=== PATIENT | male | born 1955 | race Hispanic/Latino ===

== ENCOUNTER 2017-06-02 19:38 | Inpatient (IN) | payer BC ==
[2017-06-02 19:57] VITALS: BMI 30.1
--- NOTE | 2017-06-02 20:21 | ED PDOC ---
Arrival/HPI - General Chief Complaint: Lower Extremity Problem/Injury Time Seen by Provider: 06/02/17 19:53 Historian: Patient - History of Present Illness Narrative History of Present Illness (Text): 06/02/17 20:16 A 61 year old male whose past medical history includes possible pre- diabetes, presents to the emergency department after being sent in by his metal sponge making machine operator to be evaluated for cellulitis, and abscess to the left lower leg/foot. The patient states that his foot has been in this condition for some time, and was recently seen for a leg infection by his PMD. He was given amoxicillin, but was also seen by his metal sponge making machine operator today and was told to come to the emergency department for antibiotics, IV Fluids, infectious disease and podiatric evaluation. He denies fevers, chills, nausea, vomiting, diarrhea, headache, dizziness, chest pain, shortness of breath, neck pain, back pain, or any other complaint. Symptom Onset: Gradual Symptom Course: Worsening Activities at Onset: Rest, Light Context: Home Past Medical History - Provider Review Nursing Documentation Reviewed: Yes - Psychiatric Hx Substance Use: No - Anesthesia Hx Anesthesia: No Family/Social History - Physician Review Nursing Documentation Reviewed: Yes Family/Social History: No Known Family HX Smoking Status: Never Smoked Hx Alcohol Use: No Hx Substance Use: No Allergies/Home Meds Allergies/Adverse Reactions: Allergies No Known Allergies Allergy (Verified 06/02/17 19:58) Home Medications: Home Meds Medication Instructions Recorded Confirmed No Known Home Med 06/02/17 06/02/17 Review of Systems - Physician Review All systems were reviewed & negative as marked: Yes - Review of Systems Constitutional: absent: Fevers, Night Sweats Respiratory: absent: SOB, Cough Cardiovascular: absent: Chest Pain Gastrointestinal: absent: Abdominal Pain, Diarrhea, Nausea, Vomiting Musculoskeletal: Other (evaluation for gangrene, abscess, and cellulitis on left lower leg.). absent: Back Pain, Neck Pain Neurological: absent: Headache, Dizziness Physical Exam Vital Signs Reviewed: Yes Vital Signs Temp Pulse Resp BP Pulse Ox 06/02/17 20:03 98.5 F 73 16 145/67 95 Temperature: Afebrile Blood Pressure: Normal Pulse: Regular Respiratory Rate: Normal Appearance: Positive for: Well-Appearing, Non-Toxic, Comfortable Pain Distress: None Mental Status: Positive for: Alert and Oriented X 3 - Systems Exam Head: Present: Atraumatic, Normocephalic Pupils: Present: PERRL Extroacular Muscles: Present: EOMI Conjunctiva: Present: Normal Mouth: Present: Moist Mucous Membranes Neck: Present: Normal Range of Motion Respiratory/Chest: Present: Clear to Auscultation, Good Air Exchange. No: Respiratory Distress, Accessory Muscle Use Cardiovascular: Present: Regular Rate and Rhythm, Normal S1, S2. No: Murmurs Abdomen: Present: Normal Bowel Sounds. No: Tenderness, Distention, Peritoneal Signs Back: Present: Normal Inspection Upper Extremity: Present: Normal Inspection. No: Cyanosis, Edema Lower Extremity: Present: Erythema (confluent errythema/swelling to the left lower leg/foot area (chronic)), Deformity ( macerated infected distal fifth, fourth, and third toes,discolored/gangrenous distally). No: NORMAL PULSES ( Distal pulses barely palapable distally.), Tenderness (No tenderness to the left lower leg and foot area) Neurological: Present: GCS=15, CN II-XII Intact, Speech Normal Psychiatric: Present: Alert, Oriented x 3, Normal Insight, Normal Concentration Medical Decision Making ED Course and Treatment: 06/02/17 20:27 Impression: A 61 year old male presents after being advised by his metal sponge making machine operator for evaluation of gangrene, cellulitis, and abscess. Plan: -- EKG -- Chest X-ray -- Lower Extremity Vein US -- Blood/Wound Culture -- IV Fluids -- Reassess and disposition Progress Notes: Reviewed EKG, NSR at [address]-segment elevations or depressions, no T-wave inversions, normal intervals. 06/02/17 21:23 Reviewed radiology, Chest X-ray shows no acute processes. US Duplex Lower Extremities negative for DVT. 06/02/17 21:[address] Ramirez, supply chain vice president diversional therapist, who is aware and agrees to evaluate with pt. 06/02/17 22:[address] Devin Kenney, who is aware and agrees with plan. Accepts pt in to his service. Pt will be admitted to [facility] for abscess, cellulitis, and gangrenous toes. Requests Dr. Farrell, Dr. Lagunas, Dr. Escalera, and Dr. Sidhu on consult. - Lab Interpretations Lab Results: 06/02/17 21:19 06/02/17 21:19 Lab Results 06/02/17 21:19: Sodium 140, Potassium 4.3, Chloride 101, Carbon Dioxide 27, Anion Gap 16, BUN 20, Creatinine 0.7, Est GFR ( Amer) > 60, Est GFR (Non- Af Amer) > 60, Random Glucose 263 H, Calcium 8.9, Total Bilirubin 0.7, AST 41, ALT 50, Alkaline Phosphatase 119, Total Protein 7.7, Albumin 3.4, Globulin 4.3, Albumin/Globulin Ratio 0.8 L 06/02/17 21:19: WBC 9.1, RBC 4.18, Hgb 11.9 L, Hct 35.5 L, MCV 84.9, MCH 28.5, MCHC 33.5, RDW 12.6, Plt Count 377, MPV 9.2 06/02/17 21:19: PT 12.4 H, INR 1.15 H, APTT 27.3 I have reviewed the lab results: Yes - RAD Interpretation Radiology Orders: 06/02/17 20:16 CHEST PORTABLE [RAD] Stat 06/02/17 20:17 DUPLEX LOWER EXTRM VEIN BILAT [US] Stat 06/02/17 22:07 FOOT LEFT 3 VIEWS ROUTINE [RAD] Stat - EKG Interpretation Interpreted by ED Physician: Yes - Medication Orders Current Medication Orders: Sodium Chloride (Sodium Chloride 0.9%) 1,000 mls @ 100 mls/hr IV .Q10H AMIRA Last Admin: 06/02/17 20:30 Dose: 100 mls/hr eMAR Start Stop Document 06/02/17 20:30 SS (Rec: 06/02/17 22:55 SS [id number]) Intravenous Solution Start Date 06/02/17 Start Time 20:30 Vancomycin HCl (Vancomycin 1gm) 1 gm in 250 mls @ 167 mls/hr IVPB Q12H AMIRA PRN Reason: Protocol Last Admin: 06/03/17 00:27 Dose: Piperacillin Sod/Tazobactam Sod (Zosyn 3.375 In Ns 100ml) 100 mls @ 200 mls/hr IVPB Q6 AMIRA PRN Reason: Protocol Stop: 06/03/17 06:29 Last Admin: 06/03/17 01:00 Dose: Discontinued Medications Albuterol/Ipratropium (Duoneb 3 Mg/0.5 Mg (3 Ml) Ud) Confirm Administered Dose 3 ml .ROUTE .STK-MED ONE Stop: 06/03/17 00:22 Last Admin: 06/03/17 00:27 Dose: Vancomycin HCl (Vancomycin 1gm) 1 gm in 250 mls @ 167 mls/hr IVPB STAT STA PRN Reason: Protocol Stop: 06/02/17 23:43 Last Admin: 06/03/17 00:26 Dose: 167 mls/hr eMAR Start Stop Document 06/03/17 00:26 SS (Rec: 06/03/17 00:26 SS [id number]) Intravenous Solution Start Date 06/03/17 Start Time 00:26 Piperacillin Sod/Tazobactam Sod (Zosyn 3.375 In Ns 100ml) 100 mls @ 200 mls/hr IV STAT STA PRN Reason: Protocol Stop: 06/02/17 22:35 Last Admin: 06/02/17 22:54 Dose: 200 mls/hr eMAR Start Stop Document 06/02/17 22:54 SS (Rec: 06/02/17 22:54 SS [id number]) Intravenous Solution Start Date 06/02/17 Start Time 22:54 End Date 06/02/17 End time 23:24 Total Infusion Time 30 - Scribe Statement The provider has reviewed the documentation as recorded by the Enrrique Rey Provider Scribe Attestation: All medical record entries made by the Scribe were at my direction and personally dictated by me. I have reviewed the chart and agree that the record accurately reflects my personal performance of the history, physical exam, medical decision making, and the department course for this patient. I have also personally directed, reviewed, and agree with the discharge instructions and disposition. Disposition/Present on Arrival - Present on Arrival Any Indicators Present on Arrival: No History of DVT/PE: No History of Uncontrolled Diabetes: No Urinary Catheter: No History of Decub. Ulcer: No History Surgical Site Infection Following: None - Disposition Have Diagnosis and Disposition been Completed?: Yes Diagnosis: Cellulitis Disposition: HOSPITALIZED Disposition Time: 22:35 Condition: STABLE
[2017-06-02] MEDS: Sodium Chloride 0.9% 1,000 ML IV SCH (20:30)
[2017-06-02 21:34] LABS: HEMATOCRIT 35.5 % (42.0-52.0); MEAN CELL VOLUME 84.9 fl (80.0-105.0); MEAN CORPUSCULAR HEMOGLOBIN 28.5 pg (25.0-35.0); MEAN CORPUSCULAR HGB CONC 33.5 g/dl (31.0-37.0); MEAN PLATELET VOLUME 9.2 fl (7.0-11.0); RED CELL DISTRIBUTION WIDTH 12.6 % (11.5-14.5); WHITE BLOOD COUNT 9.1 10^3/ul (4.5-11.0)
[2017-06-02 21:40] LABS: ALB/GLOB RATIO 0.8 (1.1-1.8); ALKALINE PHOSPHATASE 119 U/L (38-126); ALT/SGPT 50 U/L (7-56); AST/SGOT 41 U/L (17-59); BILIRUBIN,TOTAL 0.7 mg/dL (0.2-1.3); BLOOD UREA NITROGEN 20 mg/dL (7-21); CALCIUM 8.9 mg/dL (8.4-10.5); CARBON DIOXIDE 27 mmol/L (21-33); CHLORIDE 101 mmol/L (98-107); GFR AFRICAN-AMERICAN > 60; GLUCOSE,RANDOM 263 mg/dL (70-110); POTASSIUM 4.3 mmol/L (3.6-5.0); SODIUM 140 mmol/L (132-148); TOTAL PROTEIN 7.7 g/dL (5.8-8.3)
[2017-06-02 21:42] LABS: INR 1.15 (0.93-1.08); PARTIAL THROMBOPLASTIN TIME 27.3 Seconds (23.7-30.8)
[2017-06-02] MEDS ORDERED: Piperacillin/Tazobact 3.375 gm 100 ML IV STA (22:06)
[2017-06-02] MEDS ORDERED: Vancomycin 1gm in NS 250ml 1 GM/250 ML BAG IVPB STA (22:14)
--- NOTE | 2017-06-02 23:12 | CP.PCM.CON ---
History of Present Illness - History of Present Illness History of Present Illness: Surgery: Dr. Farrell CC: LLE cellulitis and gangrenous toes HPI: 61M recently dx as pre-diabetic and started on metformin presents for evaluation of LLE cellulitis. Pt states that it began about 1 1/2 months ago w. some slight reddening of the foot and lower leg. He states that this progressed and the leg became darker in color, most notably at the L 4th and 5th digits. Pt states that about 1 1/2 weeks ago, he began to notice drainage from the foot which had a foul odor. Pt denies any pain to the affected extremity. He denies any fever. He does reports chills. Pt states that he has been taking amoxicillin and has not noted any improvement. He states that he saw his wine steward/stewardess today and was instructed to come to ED for further work up. He denies FAITH/blurred vision, no CP/palpitations, no SOB/cough, no N/V/D, pt does have decreased appetite, reports general feeling of malaise and fatigue. PMH: Pre-DM PSH: none Meds: metformin NKDA Social: No ETOH/Tobacco/drugs Fhx: Non-contributory Review of Systems - Review of Systems All systems: reviewed and no additional remarkable complaints except (HPI) Past Patient History - Past Social History Smoking Status: Never Smoked - PSYCHIATRIC Hx Substance Use: No - SURGICAL HISTORY Hx Surgeries: No - ANESTHESIA Hx Anesthesia: No Meds Allergies/Adverse Reactions: Allergies Allergy/AdvReac Type Severity Reaction Status Date / Time No Known Allergies Allergy Verified 06/02/17 19:58 - Medications Medications: Current Medications Sodium Chloride (Sodium Chloride 0.9%) 1,000 mls @ 100 mls/hr IV .Q10H AMIRA Last Admin: 06/02/17 20:30 Dose: 100 mls/hr Vancomycin HCl (Vancomycin 1gm) 1 gm in 250 mls @ 167 mls/hr IVPB STAT STA PRN Reason: Protocol Stop: 06/02/17 23:43 Vancomycin HCl (Vancomycin 1gm) 1 gm in 250 mls @ 167 mls/hr IVPB Q12H AMIRA PRN Reason: Protocol Piperacillin Sod/Tazobactam Sod (Zosyn 3.375 In Ns 100ml) 100 mls @ 200 mls/hr IVPB Q6 AMIRA PRN Reason: Protocol Stop: 06/03/17 06:29 Physical Exam - Constitutional Appears: Non-toxic, No Acute Distress - Head Exam Head Exam: ATRAUMATIC, NORMOCEPHALIC - Eye Exam Eye Exam: EOMI, PERRL Pupil Exam: NORMAL ACCOMODATION, PERRL - ENT Exam ENT Exam: Mucous Membranes Moist, Normal External Ear Exam - Neck Exam Neck exam: Positive for: Full Rom - Respiratory Exam Respiratory Exam: NORMAL BREATHING PATTERN. absent: Accessory Muscle Use, Respiratory Distress - Cardiovascular Exam Cardiovascular Exam: REGULAR RHYTHM - GI/Abdominal Exam GI & Abdominal Exam: Soft. absent: Tenderness - Extremities Exam Additional comments: LLE: + edema, + erythema from foot extending up calf, warm to touch, non-tender , sensation and motor fxn intact, 4th and 5 digit appear necrotic, purulent drainage noted, foul odor RLE: + edema, non-tender, no erythema, R big toe appear necrotic at tip, no drainage, web space between toes macerated, foul odor - Neurological Exam Neurological exam: Alert, Oriented x3 Results - Vital Signs Recent Vital Signs: Last Vital Signs Temp 98.5 F 06/02/17 20:03 Pulse 73 06/02/17 20:03 Resp 16 06/02/17 20:03 BP 145/67 06/02/17 20:03 Pulse Ox 95 06/02/17 20:03 - Labs Result Diagrams: 06/02/17 21:19 06/02/17 21:19 Assessment & Plan - Assessment and Plan (Free Text) Assessment: 61M w. LLE cellulitis and gangrene of 4th and 5th digit -Duplex: neg for DVT -F/U LLE Xray -PVR ordered to assess vascular status -zosyn and vanco -local wound care -keep legs elevated -will d/w attending Zemaitis PGY3
[2017-06-03] MEDS ORDERED: Albuterol-Ipratrop 3 mg / 0.5 (3 ml) UD ONE (00:21)
[2017-06-03] MEDS: Vancomycin 1gm in NS 250ml 1 GM/250 ML BAG IVPB SCH ×3 (00:27→22:36)
[2017-06-03] MEDS: Piperacillin/Tazobact 3.375 gm 100 ML IVPB SCH ×4 (01:00→20:46)
[2017-06-03 08:44] LABS: BASO # 0.01 K/mm3 (0.0-2.0); BASO % 0.1 % (0.0-3.0); EOS # 0.2 (0.0-0.7); EOS % 2.5 % (1.5-5.0); GRAN # 7.01 (1.4-6.5); GRAN % 78.3 % (50.0-68.0); HEMATOCRIT 31.5 % (42.0-52.0); LYMPH # 1.1 (1.2-3.4); LYMPH % 11.8 % (22.0-35.0); MEAN CELL VOLUME 84.9 fl (80.0-105.0); MEAN CORPUSCULAR HEMOGLOBIN 27.8 pg (25.0-35.0); MEAN CORPUSCULAR HGB CONC 32.7 g/dl (31.0-37.0); MEAN PLATELET VOLUME 8.9 fl (7.0-11.0); MONO # 0.7 (0.1-0.6); MONO % 7.3 % (1.0-6.0); RED CELL DISTRIBUTION WIDTH 12.5 % (11.5-14.5)
[2017-06-03 08:57] LABS: ALB/GLOB RATIO 0.7 (1.1-1.8); ALKALINE PHOSPHATASE 87 U/L (38-126); ALT/SGPT 48 U/L (7-56); AST/SGOT 28 U/L (17-59); BILIRUBIN,TOTAL 0.6 mg/dL (0.2-1.3); BLOOD UREA NITROGEN 15 mg/dL (7-21); CARBON DIOXIDE 25 mmol/L (21-33); CHLORIDE 106 mmol/L (98-107); GFR AFRICAN-AMERICAN > 60; GLUCOSE,RANDOM 239 mg/dL (70-110); POTASSIUM 3.9 mmol/L (3.6-5.0); SODIUM 140 mmol/L (132-148); TOTAL PROTEIN 6.3 g/dL (5.8-8.3)
--- NOTE | 2017-06-03 09:59 | CP.PCM.CON ---
History of Present Illness - History of Present Illness History of Present Illness: Podiatry Consult Note - Dr. Lagunas 61 year old pre-diabetic male seen at bedside at the request for podiatry consultation for LLE cellulitis + gangrene 4th digit. Patient seen resting comfortably, AAOx3 and NAD. Patient states that he noticed swelling + redness to his left leg approximately 2 months ago, but admits that he did not see his grease press helper at initial presentation. Patient admits he was not monitoring his left leg closely until he realized that the redness worsened, and states his 4th toe began to turn black. Patient was told by his grease press helper to come to ED today. Patient denies any pain to his LLE. Patient denies N/V/F/D/C/SOB. No other pedal complaints at this time. Review of Systems - Review of Systems All systems: reviewed and no additional remarkable complaints except (as per HPI ) Past Patient History - Past Social History Smoking Status: Never Smoked - CARDIAC Hx Cardiac Disorders: No - PULMONARY Hx Respiratory Disorders: No - NEUROLOGICAL Hx Neurological Disorder: No - HEENT Hx HEENT Problems: No - RENAL Hx Chronic Kidney Disease: No - ENDOCRINE/METABOLIC Hx Endocrine Disorders: Yes ("pre-diabetes" takes metformin) Hx Diabetes Mellitus Type 2: Yes Other/Comment: left foot ulcer/ infection - HEMATOLOGICAL/ONCOLOGICAL Hx Blood Disorders: No - INTEGUMENTARY Hx Dermatological Problems: No - MUSCULOSKELETAL/RHEUMATOLOGICAL Hx Falls: No - GASTROINTESTINAL Hx Gastrointestinal Disorders: No - GENITOURINARY/GYNECOLOGICAL Hx Genitourinary Disorders: No - PSYCHIATRIC Hx Substance Use: No - SURGICAL HISTORY Hx Surgeries: No - ANESTHESIA Hx Anesthesia: No Meds Allergies/Adverse Reactions: Allergies Allergy/AdvReac Type Severity Reaction Status Date / Time No Known Allergies Allergy Verified 06/02/17 19:58 - Medications Medications: Current Medications Sodium Chloride (Sodium Chloride 0.9%) 1,000 mls @ 100 mls/hr IV .Q10H [facility] Last Admin: 06/02/17 20:30 Dose: 100 mls/hr Vancomycin HCl (Vancomycin 1gm) 1 gm in 250 mls @ 167 mls/hr IVPB Q12H AMIRA PRN Reason: Protocol Last Admin: 06/03/17 00:27 Dose: Not Given Physical Exam - Constitutional Appears: Well, Non-toxic, No Acute Distress - Extremities Exam Additional comments: VASC: DP and PT pulses palpable 2/4 b/l. CFT <3 seconds to digits 1-5 R, 1,2,3, 5 L; unable to obtain left 4th digit. TG warm to warm RLE, warm to hot LLE. Edema noted LLE. NEURO: Gross sensation absent. DERM: Necrotic 4th digit left foot. Ulceration noted to 5th digit sulcus, (-) probe to bone - purulence noted when expressed from wound. Maceration noted 3rd and 4th webspaces left foot. Bullae noted to left plantar medial arch - purulence expressed when lanced. ORTHO: No pain on palpation left foot. - Neurological Exam Neurological exam: Alert, Oriented x3 - Psychiatric Exam Psychiatric exam: Normal Affect, Normal Mood Results - Vital Signs Recent Vital Signs: Last Vital Signs Temp 99.0 F 06/03/17 06:00 Pulse 70 06/03/17 06:00 Resp 20 06/03/17 06:00 BP 149/77 06/03/17 06:00 Pulse Ox 98 06/03/17 06:00 - Labs Result Diagrams: 06/03/17 08:35 06/03/17 08:35 Labs: Laboratory Results - last 24 hr 06/03/17 06/03/17 08:35 08:35 WBC 9.0 RBC 3.71 Hgb 10.3 L Hct 31.5 L MCV 84.9 MCH 27.8 MCHC 32.7 RDW 12.5 Plt Count 303 MPV 8.9 Gran % 78.3 H Lymph % (Auto) 11.8 L [place] % (Auto) 7.3 H Eos % (Auto) 2.5 Baso % (Auto) 0.1 Gran # 7.01 H Lymph # 1.1 L [place] # 0.7 H Eos # 0.2 Baso # 0.01 Sodium 140 Potassium 3.9 Chloride 106 Carbon Dioxide 25 Anion Gap 13 BUN 15 Creatinine 0.6 Est GFR ( Amer) > 60 Est GFR (Non-Af Amer) > 60 Random Glucose 239 H Calcium 8.0 L Total Bilirubin 0.6 AST 28 ALT 48 Alkaline Phosphatase 87 Total Protein 6.3 Albumin 2.6 L Globulin 3.7 Albumin/Globulin Ratio 0.7 L Assessment & Plan - Assessment and Plan (Free Text) Assessment: 61 year old male patient with LLE cellulitis, wet gangrene 4th digit, Eid IV wound Plan: Patient seen and evaluated with attending, Dr. Lagunas Chart, vitals, labs reviewed = afebrile, WBC 9.0 Explained to patient morbidity associated with wet gangrene; patient demonstrates verbal agreement and understands need for surgical intervention at this time To OR today @ 16:00 for left 4th digit amputation and I&D of abscess NPO ordered Patient to be NWB LLE at this time; will re-evaluate s/p surgery Recommend patient to apply for short term disability because he will be unable to work for some time s/p surgery Per ID, patient started on Vancomycin and Zosyn pending blood cx and wound cx F/U left foot XR Podiatry will continue to follow while in house
--- NOTE | 2017-06-03 10:02 | US ---
HISTORY: Leg pain and swelling. Evaluate for DVT PHYSICIAN(S): Willian Blanco MD. TECHNIQUE: Duplex sonography and color-flow Doppler with graded compression were used to evaluate the deep venous systems of both lower extremities. The exam is limited by edema. The tibial veins are not well seen. FINDINGS: The visualized deep venous systems of both lower extremities are sonographically normal and compressible. Normal wave forms and augmentation are seen. There is no sonographic evidence for deep venous thrombosis in the visualized segments of both lower extremities. IMPRESSION: No sonographic evidence for deep venous thrombosis in the visualized segments of both lower extremities. Limited study
--- NOTE | 2017-06-03 10:59 | RAD ---
HISTORY: fever COMPARISON: No prior. FINDINGS: LUNGS: No active pulmonary disease. PLEURA: No significant pleural effusion identified, no pneumothorax apparent. CARDIOVASCULAR: Normal. OSSEOUS STRUCTURES: No significant abnormalities. VISUALIZED UPPER ABDOMEN: Normal. OTHER FINDINGS: None. IMPRESSION: No acute cardiopulmonary disease appreciable.
--- NOTE | 2017-06-03 12:26 | CP.PCM.CON ---
History of Present Illness - History of Present Illness History of Present Illness: 61 year old male with PMH of pre-diabetes, obesity with BMI 30 came in to [facility] after being sent by his Trust Administrative Assistant for left leg skin and soft tissue infection. The patient states that he has had a left leg infection for the past 6 weeks and was treated by his Trust Administrative Assistant about a week and a half ago because his foot had drainage. He was given Amoxicillin but he continues to have pain in the foot. He denies animal contacts, walking barefoot on soil, no soaking of feet and legs in water. He has no fever or chills, no SOB, no chest pain, no nausea or vomiting, no abdominal pain, no headache or dizziness. Infectious diseases consult is requested to further evaluate and manage. Review of Systems - Review of Systems All systems: reviewed and no additional remarkable complaints except (as per HPI ) Past Patient History - Past Social History Smoking Status: Never Smoked - PSYCHIATRIC Hx Substance Use: No - SURGICAL HISTORY Hx Surgeries: No - ANESTHESIA Hx Anesthesia: No Meds Allergies/Adverse Reactions: Allergies Allergy/AdvReac Type Severity Reaction Status Date / Time No Known Allergies Allergy Verified 06/02/17 19:58 - Medications Medications: Current Medications Sodium Chloride (Sodium Chloride 0.9%) 1,000 mls @ 100 mls/hr IV .Q10H AMIRA Last Admin: 06/02/17 20:30 Dose: 100 mls/hr Vancomycin HCl (Vancomycin 1gm) 1 gm in 250 mls @ 167 mls/hr IVPB STAT STA PRN Reason: Protocol Stop: 06/02/17 23:43 Physical Exam - Constitutional Appears: Non-toxic, No Acute Distress - Head Exam Head Exam: NORMAL INSPECTION - ENT Exam ENT Exam: Mucous Membranes Moist - Neck Exam Neck exam: Negative for: Lymphadenopathy, Meningismus - Respiratory Exam Respiratory Exam: Decreased Breath Sounds - Cardiovascular Exam Cardiovascular Exam: +S1, +S2 - GI/Abdominal Exam GI & Abdominal Exam: Soft. absent: Tenderness - Extremities Exam Additional comments: left foot with dressings in place Results - Vital Signs Recent Vital Signs: Last Vital Signs Temp 98.5 F 06/02/17 20:03 Pulse 73 06/02/17 20:03 Resp 16 06/02/17 20:03 BP 145/67 06/02/17 20:03 Pulse Ox 95 06/02/17 20:03 - Labs Result Diagrams: 06/03/17 08:35 06/03/17 08:35 Assessment & Plan - Assessment and Plan (Free Text) Plan: Assessment Consider left lower extremity skin and skin structure infection, R/O osteomyelitis pre-diabetes obesity with BMI 30 Plan Started patient on Vancomycin and Zosyn pending blood, wound cx, ESR, CRP, foot- xrays, ARMANI's follow up Podiatry evaluation and recommendations will monitor clinically
--- NOTE | 2017-06-03 13:43 | RAD ---
PROCEDURE: Left Foot Radiographs. HISTORY: r/o osteomyelitis COMPARISON: None. FINDINGS: BONES: Deformity with suspect fracture possible dislocation 4th toe proximal interphalangeal joint region suspect. Osseous destruction relating to an aggressive osteomyelitis is another consideration. Overlying marked soft tissue swelling. A prominent focal cellulitis here is consistent with this. Exam is limited regarding anatomy overlapped here on other projections. Fourth metatarsal head erosions severe osteopenia versus 3rd metatarsal head a miller lateral lesser erosion. First metatarsal-phalangeal joint arthrosis. Hypertrophic and hyperdense medial sesamoid. Small os tibial externum accessory ossifications center -borders the medial navicular. Exuberant posterior calcaneal cortical hyperostoses and blending inferior prominent osteophyte. Superior posterior calcaneal spurring with erosion and Achilles tendon insertional enthesophyte. Gouty arthrosis no erosions a here needed be considered. JOINTS: As above SOFT TISSUES: Diffuse reticulated subcutaneous lymph edema suggested in comet cellulitis not excluded. No gas-forming cellulitis. Particularly focal soft tissue swelling over the 4th toe OTHER FINDINGS: None. IMPRESSION: Deformity consistent with mixed pathologies - patchy demineralization consistent with osteomyelitis and concomitant cellulitis. No comparison studies available. The deformity can also be seen with prior fracture and / dislocation - 4th digit proximal interphalangeal joint approximation - here limited evaluation because of the super imposition of osseous anatomy. Erosions - gouty arthrosis suspect. Uric acid correlation recommended Lymphedema. Superimposed cellulitis inferred. No gas-forming cellulitis noted
--- NOTE | 2017-06-03 14:12 | US ---
PROCEDURE: Lower extremity ARMANI exam HISTORY: Peripheral vascular disease with pain and gangrene. Diabetes. PHYSICIAN(S): Willian Blanco MD. FINDINGS: The resting ARMANI's are normal: right, 1.21and left, 1.23. The brachial systolic pressures are symmetric. The high thigh pressures are noncompressible. The high thigh PVR waveforms are normal and symmetric. The calf PVR waveforms augment normally. No significant gradients are noted across the thighs. The left calf PVR waveform is minimally blunted compared to the right. This could represent subtle left SFA disease. The ankle and metatarsal waveforms are relatively normal and symmetric. No significant pressure gradients are noted across the lower legs. IMPRESSION: 1. Relatively normal ARMANI and PVR examination at rest. 2. Possible subtle left SFA disease.
--- NOTE | 2017-06-03 15:37 | HP ---
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 The patient states that approximately one month ago he noticed mild edema to his fourth and fifth digits which subsequently progressed up his left lower extremity towards his ankle and mid miller. He subsequently developed increased edema and warmth to the site. Due to the fact that his is undergoing chemotherapy and he is working two jobs he was unable to seek medical attention and has been trying to care for his wound at home. Despite his efforts, his lower extremity continued to deteriorate and eventually he opted for medical evaluation. He was prescribed the course of Augmentin for cellulitis but when his symptoms did not improve, he made an appointment with his vehicle body sander for further evaluation. Upon evaluation by his vehicle body sander, he was noted to have gangrenous fourth and fifth digits of the left lower extremity and was advised to present to the emergency department for further evaluation. Of note, he denied fevers, chills, rigors or any other constitutional symptoms associated with his presenting symptoms. Upon arrival to the ED, he was noted to be afebrile and hemodynamically stable and initial laboratory studies were largely unremarkable. He was subsequently admitted to the general medical [facility] for continued management of left lower extremity cellulitis and gangrene of the fourth and fifth digits. PAST MEDICAL HISTORY: None. PAST SURGICAL HISTORY: None. MEDICATIONS: None. ALLERGIES: NO KNOWN DRUG ALLERGIES. SOCIAL HISTORY: The patient denies any history of tobacco use, illicit drug abuse or alcohol use. FAMILY HISTORY: Noncontributory. REVIEW OF SYSTEMS: A 14-point review of systems is negative except as per HPI. PHYSICAL EXAMINATION: VITAL SIGNS: Temperature 99, pulse 70, blood pressure 149/77, respiratory rate 20, oxygen saturation 98% on room air. GENERAL: No apparent distress. HEENT: PERRL. EOMI. No scleral icterus. No conjunctival pallor. NECK: No JVD. No bruits. LUNGS: Clear to auscultation. CARDIOVASCULAR: Regular rate and rhythm. Normal S1 and S2. ABDOMEN: Normal active bowel sounds. Soft, nontender, and nondistended. EXTREMITIES: Left lower extremity with edema to mid miller with erythema, increased warmth and tenderness to palpation. Left fourth and fifth digits appear necrotic. No oozing is noted. NEUROLOGIC: Awake, alert and oriented x3. No focal motor deficits. LABORATORY DATA: WBC 9.1, hemoglobin 12, hematocrit 35, and platelets 377. Chemistry reviewed and unremarkable with the exception of a glucose of 263. IMAGING STUDIES: 1. Chest x-ray is pending. 2. X-ray of the left foot is pending. ASSESSMENT: The patient is a 61-year-old man with no known medical problems who presented to [facility] from his vehicle body sander's office for evaluation of a one and half month history of progressively worsening left lower extremity edema, erythema and discoloration of his fourth and fifth digits who was admitted to the general medical [facility] for management of left lower extremity cellulitis and gangrene of his fourth and fifth digits. PLAN: 1. Left lower extremity cellulitis. The patient remains afebrile and hemodynamically stable. Dr. Escalera of Infectious Disease has been consulted for further evaluation and recommendations and the patient has been started on vancomycin and Zosyn. Blood cultures have been obtained in the emergency department and will await results. We will continue to monitor for fever and leukocytosis. 2. Gangrene of the left foot fourth and fifth digits. As above, Dr. Esaclera of Infectious Disease has been consulted for antimicrobial management. Dr. Lagunas of Podiatry and Dr. Frarell of General Surgery have also been consulted. We will also consult Dr. Willian Blanco for vascular evaluation. An x-ray of the foot is ordered and we will follow up to rule out any evidence of osteomyelitis. In the interim, we will continue with local wound care as per the surgical and podiatric teams. CODE STATUS: Full code. Emerson Kenney MD MTDElliot
--- NOTE | 2017-06-03 16:12 | CP.PCM.PN ---
Subjective - Date & Time of Evaluation Date of Evaluation: 06/03/17 Time of Evaluation: 16:09 - Subjective Subjective: General Surgery Progress Note for Dr. Farrell PT S&E at bedside. STACIE. Patient states he is tolerating pain well. He states he has not seen Dr. Lagunas this morning yet. Later in the day, Dr. Lagunas saw patient and patient is scheduled for fourth toe amputation at around 4pm this afternoon. PAtient denies F/C, N/V. Patient states he has pain in his leg and foot (Right) Objective - Vital Signs/Intake and Output Vital Signs (last 24 hours): Temp Pulse Resp BP Pulse Ox 99.0 F 70 20 149/77 98 06/03/17 06:00 06/03/17 06:00 06/03/17 06:00 06/03/17 06:00 06/03/17 06:00 Intake and Output: 06/03/17 06/03/17 06:59 18:59 Intake Total 1000 0 Balance 1000 0 - Medications Medications: Current Medications Sodium Chloride (Sodium Chloride 0.9%) 1,000 mls @ 100 mls/hr IV .Q10H AMIRA Last Admin: 06/02/17 20:30 Dose: 100 mls/hr Vancomycin HCl (Vancomycin 1gm) 1 gm in 250 mls @ 167 mls/hr IVPB Q12H AMIRA PRN Reason: Protocol Last Admin: 06/03/17 11:47 Dose: 167 mls/hr Piperacillin Sod/Tazobactam Sod (Zosyn 3.375 In Ns 100ml) 100 mls @ 200 mls/hr IVPB Q6 AMIRA PRN Reason: Protocol Stop: 06/10/17 12:01 Last Admin: 06/03/17 14:23 Dose: 200 mls/hr - Labs Labs: 06/03/17 08:35 06/03/17 08:35 PT 12.4 Seconds (9.9-11.8) H 06/02/17 21:19 INR 1.15 (0.93-1.08) H 06/02/17 21:19 APTT 27.3 Seconds (23.7-30.8) 06/02/17 21:19 - Constitutional Appears: Non-toxic - Head Exam Head Exam: NORMAL INSPECTION - Eye Exam Eye Exam: EOMI, Normal appearance - ENT Exam ENT Exam: Mucous Membranes Moist - Respiratory Exam Respiratory Exam: NORMAL BREATHING PATTERN. absent: Accessory Muscle Use, Respiratory Distress - Cardiovascular Exam Cardiovascular Exam: REGULAR RHYTHM. absent: Bradycardia, Tachycardia - GI/Abdominal Exam GI & Abdominal Exam: Soft. absent: Tenderness - Extremities Exam Extremities Exam: Pedal Edema Additional comments: Left sided 2+ pitting edema and erythema on anterior tibial surface Right side does not have edema on anterior tibial surface - Neurological Exam Neurological Exam: Alert, Awake, Oriented x3 - Psychiatric Exam Psychiatric exam: Normal Affect, Normal Mood - Skin Skin Exam: Normal Color
[2017-06-03] MEDS ORDERED: Propofol 10 mg/ml Inj (20 ML) ONE ×2 (18:02→18:03)
[2017-06-03] MEDS ORDERED: Midazolam 2 MG/2 ML VIAL ONE (18:02)
[2017-06-03] MEDS ORDERED: Lidocaine 2% Inj (20ml) ONE (18:05)
[2017-06-03] MEDS ORDERED: Lidocaine 2% Inj (20ml) SC ONE (18:14)
[2017-06-03] MEDS ORDERED: Gentamicin 80 mg/2mL Inj. ONE (18:21)
[2017-06-03] MEDS ORDERED: HYDROmorphone 0.5 mg/0.5 ml ISec IVP PRN (19:06)
--- NOTE | 2017-06-03 19:09 | PCM.SURG1 ---
Surgeon's Initial Post Op Note - Surgeon's Notes Surgeon: Dr. Lagunas Tool Crib Clerk: SARAH BradshawM PGY1 Type of Anesthesia: IV Sedation, Local Anesthesia Administered By: Dr. Nicole Pre-Operative Diagnosis: Left foot wet gangrene 4th digit, ulceration, and abscess Operative Findings: See operative report. Materials: 1/2" iodoform packing. Injectables: 20cc 2% lidocaine plain Post-Operative Diagnosis: Same as above Operation Performed: Amputation of 4th digit, debridement of ulcer, incision and drainage of abscess Specimen/Specimens Removed: 4th digit left foot, left foot abscess Estimated Blood Loss: EBL {In ML}: 20 Blood Products Given: N/A Drains Used: No Drains Post-Op Condition: Good Date of Surgery/Procedure: 06/03/17 Time of Surgery/Procedure: 18:30
[2017-06-03] MEDS ORDERED: Lactated Ringer's 1,000 ML IV SCH (19:15)
[2017-06-03] MEDS ORDERED: Oxycodone/Acetaminophen 5/325 mg Tab PO PRN ×2 (19:17)
--- NOTE | 2017-06-03 23:20 | CARD ---
APPROVED REPORT EKG Measurement Heart [id number] <Conclusion> Normal sinus rhythm Normal ECG
[2017-06-04] MEDS: Piperacillin/Tazobact 3.375 gm 100 ML IVPB SCH ×4 (01:13→18:00)
[2017-06-04 06:51] LABS: ALB/GLOB RATIO 0.6 (1.1-1.8); ALKALINE PHOSPHATASE 82 U/L (38-126); ALT/SGPT 40 U/L (7-56); AST/SGOT 23 U/L (17-59); BILIRUBIN,TOTAL 0.6 mg/dL (0.2-1.3); BLOOD UREA NITROGEN 13 mg/dL (7-21); CALCIUM 8.2 mg/dL (8.4-10.5); CARBON DIOXIDE 26 mmol/L (21-33); CHLORIDE 107 mmol/L (95-110); CHOLESTEROL 109 mg/dL (130-200); GFR AFRICAN-AMERICAN > 60; GLUCOSE,RANDOM 208 mg/dL (70-110); POTASSIUM 3.8 mmol/L (3.6-5.0); SODIUM 142 mmol/L (132-148); TOTAL PROTEIN 6.4 g/dL (5.8-8.3)
[2017-06-04 07:12] LABS: BASO # 0.02 K/mm3 (0.0-2.0); BASO % 0.2 % (0.0-3.0); EOS # 0.2 (0.0-0.7); EOS % 2.1 % (1.5-5.0); GRAN # 6.31 (1.4-6.5); GRAN % 75.2 % (50.0-68.0); HEMATOCRIT 31.3 % (42.0-52.0); LYMPH # 1.3 (1.2-3.4); LYMPH % 15.3 % (22.0-35.0); MEAN CELL VOLUME 86.5 fl (80.0-105.0); MEAN CORPUSCULAR HEMOGLOBIN 27.3 pg (25.0-35.0); MEAN CORPUSCULAR HGB CONC 31.6 g/dl (31.0-37.0); MEAN PLATELET VOLUME 9.5 fl (7.0-11.0); MONO # 0.6 (0.1-0.6); MONO % 7.2 % (1.0-6.0); RED CELL DISTRIBUTION WIDTH 12.6 % (11.5-14.5); WHITE BLOOD COUNT 8.4 10^3/ul (4.5-11.0)
[2017-06-04] MEDS: Oxychlorosene Topical 2 gm Packet TOP SCH ×2 (08:55→11:32)
--- NOTE | 2017-06-04 10:36 | OP ---
DATE OF PROCEDURE: 06/03/2017 SURGEON: Vandana Lagunas DPM AGILE JAVA DEVELOPER: Chuck Regalado DPM, PGY-1. CONFIGURATOR: Timothy Nicole MD. ANESTHESIA: IV sedation with local 20 mL of 2% lidocaine plain. PREOPERATIVE DIAGNOSIS: Left foot wet gangrene fourth digit, ulceration, and abscess. POSTOPERATIVE DIAGNOSIS: Left foot wet gangrene fourth digit, ulceration, and abscess. NAME OF PROCEDURE: Amputation of fourth digit, debridement of ulcer, incision and drainage of abscess, left foot. INDICATION: The patient is a 61-year-old male with the above diagnoses. The patient has exhausted all conservative treatments at this time and now requires surgical intervention. The patient signed a consent after careful explanation of risks, benefits, complications, and alternatives for the procedure. No guarantees were given nor implied. N.p.o. status was confirmed prior to taking the patient to the OR. PREPARATION: The patient was brought into the operating room and placed on the operating room table in a supine position. Time-out was performed for identification of the correct patient and procedure. After induction of IV sedation, the patient received a total of 20 mL of 2% lidocaine plain in an ankle block type fashion to the left foot. The left foot was then prepped and draped in normal sterile manner and the procedure began. No tourniquet was used during the procedure. PROCEDURE: Attention was directed to the dorsal aspect of the left fourth digit where circumferential incision was made at the level of the MPJ using a 15 blade. The incision was then extended down to the subcutaneous layers down to the level of bone. Using a bone implant to stabilize the digit, the fourth digit was then disarticulated from the foot. Using Odell scissors, capsular structures were transected and then the fourth digit was passed from the operative field to be sent to pathology. Next, using a bone cutter, the 4th metatarsal articular cartilage was excised from the metatarsal, passed from the operative, and sent to pathology. A necrotic ulcer located plantar proximally to the fourth digit amputation site was excisionally debrided using a #15 blade and passed from the operative field. Next, directing attention towards the plantar medial arch, it was noted to have a bullae with underlying abscess. Approximately 15 mL of purulence was expressed, which communicated with the fourth digit amputation site. A wound culture was obtained from the fourth digit amputation site, tracking to the plantar medial arch abscess. Next, using a #15 blade, the bullae was excised from the plantar medial arch revealing healthy plantar fascia. Then using the [employer] Ultrasonic cylindrical kit, the instrument was probed from the bullae directly toward the fourth digit amputation site. Using the handle on setting 5, all fibrotic and nonviable tissue where the bullae and fourth digit amputation site communicated was excisionally debrided until healthy bleeding granular tissue appeared. Next, using the Misonix Ultrasonic curette style tip on setting 7, the previous ulceration site was excisionally debrided of all fibrotic and nonviable tissue until fresh and healthy bleeding granular tissue appeared. Directing attention to the dorsolateral fifth digit, it was noted to have a necrotic superficial ulceration. Using the curette style tip, the necrotic tissue was excisionally debrided until fresh healthy bleeding granular tissue appeared. Any remaining nonviable tissue was excised using forceps and curved iris scissors. The site was then flushed with copious amounts with sterile saline. The plantar medial arch was packed with 0.5-inch iodoform packing strip through the fourth digit amputation site. The plantar medical arch fourth digit amputation site and fifth digit were then dressed with Xeroform and the right foot was dressed in sterile gauze and Kerlix. POSTOPERATIVE CONDITION: The patient tolerated the anesthesia and the procedure well and was escorted to the recovery room with vital signs stable and neurovascular status intact to the left foot. The patient is to remain non-weightbearing to the left foot with the assistance of a walker. The patient will continue to be followed while in house. Chuck Regalado DPM MARLENA
--- NOTE | 2017-06-04 11:29 | CP.PCM.PN ---
Addendum entered and electronically signed by Chuck Regalado DPM 06/04/17 15:02: Patient seen in room with at bedside. Again, patient seen walking on dressing full weight bearing in surgical shoe despite being told strict NWB left foot. Left foot cleansed with Clorpactin/saline solution, packed with 1/2" iodoform packing strip, and dressed with DSD. Plan to change dressing to WoundVAC tomorrow morning. Original Note: <Chuck Regalado - Last Filed: 06/04/17 14:58> Subjective - Date & Time of Evaluation Date of Evaluation: 06/04/17 Time of Evaluation: 11:22 - Subjective Subjective: 61 year old male patient seen in room POD #1 amputation of left 4th digit, debridement of ulcer, incision and drainage of abscess (DOS: 06/03/17). Patient was seen coming from bathroom, full weight bearing to left foot, walking on dressing with no surgical shoe. Patient denies any pain to his left foot today. Per nursing and transport, patent has been walking on his left foot without a surgical shoe frequently today. Patient denies any acute events overnight. Patient denies N/V/F/D/C/SOB/calf pain. No other pedal complaints at this time. Objective - Vital Signs/Intake and Output Vital Signs (last 24 hours): Temp Pulse Resp BP Pulse Ox 99.1 F 46 L 18 150/70 96 06/04/17 06:00 06/04/17 06:00 06/04/17 06:00 06/04/17 06:00 06/04/17 06:00 Intake and Output: 06/04/17 06/04/17 06:59 18:59 Intake Total 0 Balance 0 - Medications Medications: Current Medications Acetaminophen (Tylenol 325mg Tab) 650 mg PO Q6H PRN PRN Reason: Pain, Mild (1-3) Sodium Chloride (Sodium Chloride 0.9%) 1,000 mls @ 100 mls/hr IV .Q10H [facility] Last Admin: 06/02/17 20:30 Dose: 100 mls/hr Vancomycin HCl (Vancomycin 1gm) 1 gm in 250 mls @ 167 mls/hr IVPB Q12H AMIRA PRN Reason: Protocol Last Admin: 06/03/17 22:36 Dose: 167 mls/hr Piperacillin Sod/Tazobactam Sod (Zosyn 3.375 In Ns 100ml) 100 mls @ 200 mls/hr IVPB Q6 AMIRA PRN Reason: Protocol Stop: 06/10/17 12:01 Last Admin: 06/04/17 05:38 Dose: 200 mls/hr Oxychlorosene Sodium (Clorpactin Wcs-90) 2 gm TOP DAILY AMIRA Last Admin: 06/04/17 08:55 Dose: Not Given Oxycodone/Acetaminophen (Percocet 5/325 Mg Tab) 1 tab PO Q6H PRN PRN Reason: Pain, moderate (4-7) Stop: 06/06/17 19:18 Oxycodone/Acetaminophen (Percocet 5/325 Mg Tab) 2 tab PO Q6H PRN PRN Reason: Pain, severe (8-10) Stop: 06/06/17 19:18 - Labs Labs: 06/04/17 06:50 06/04/17 06:10 PT 12.4 Seconds (9.9-11.8) H 06/02/17 21:19 INR 1.15 (0.93-1.08) H 06/02/17 21:19 APTT 27.3 Seconds (23.7-30.8) 06/02/17 21:19 - Constitutional Appears: Well, Non-toxic, No Acute Distress - Extremities Exam Additional comments: Dressing to left foot appears flattened and is dirty as patient has been walking full weight bearing without a surgical shoe - Neurological Exam Neurological Exam: Alert, Awake, Normal Gait, Oriented x3 - Psychiatric Exam Psychiatric exam: Flat Affect Assessment and Plan - Assessment and Plan (Free Text) Assessment: 61 year old male POD #1 amputation of left 4th digit, debridement of ulcer, incision and drainage of abscess Plan: Patient seen and evaluated with attending, Dr. Lagunas Chart, vitals, labs reviewed = afebrile, WBC WNL @ 8.4 Stressed the importance of strict NWB to left foot Physical therapy consulted - ambulation training NWB left foot with the assistance of walker Discussed with patient need to wait for pathology report prior to discharge planning in order to evaluate course of treatment. - If proximal margin +OM, patient may need 4-6 weeks of IV abx F/U left foot wound culture final report Podiatry will continue to follow while in house <Vandana Lagunas - Last Filed: 06/14/17 14:38> Objective - Vital Signs/Intake and Output Vital Signs (last 24 hours): Temp Pulse Resp BP Pulse Ox 98.0 F 70 20 165/90 H 95 06/12/17 06:00 06/12/17 10:03 06/12/17 06:00 06/12/17 10:03 06/12/17 06:00 - Labs Labs: 06/12/17 08:30 06/12/17 08:30 PT 12.4 Seconds (9.9-11.8) H 06/02/17 21:19 INR 1.15 (0.93-1.08) H 06/02/17 21:19 APTT 27.3 Seconds (23.7-30.8) 06/02/17 21:19 Attending/Attestation - Attestation I have personally seen and examined this patient.: Yes I have fully participated in the care of the patient.: Yes I have reviewed all pertinent clinical information, including history, physical exam and plan: Yes
[2017-06-04] MEDS: Vancomycin 1gm in NS 250ml 1 GM/250 ML BAG IVPB SCH ×2 (11:57→22:29)
--- NOTE | 2017-06-04 14:21 | CP.PCM.PN ---
Subjective - Date & Time of Evaluation Date of Evaluation: 06/04/17 Time of Evaluation: 08:00 - Subjective Subjective: PT S&E at bedside. NAEON Patient tolerated the surgery well yesterday.Patient denies any complaints at this time. No F/C, N/V. Tolerating toe amputation well. No difficulties with pain. Objective - Vital Signs/Intake and Output Vital Signs (last 24 hours): Temp Pulse Resp BP Pulse Ox 99.1 F 46 L 18 150/70 96 06/04/17 06:00 06/04/17 06:00 06/04/17 06:00 06/04/17 06:00 06/04/17 06:00 Intake and Output: 06/04/17 06/04/17 06:59 18:59 Intake Total 0 Balance 0 - Medications Medications: Current Medications Acetaminophen (Tylenol 325mg Tab) 650 mg PO Q6H PRN PRN Reason: Pain, Mild (1-3) Sodium Chloride (Sodium Chloride 0.9%) 1,000 mls @ 100 mls/hr IV .Q10H AMIRA Last Admin: 06/02/17 20:30 Dose: 100 mls/hr Vancomycin HCl (Vancomycin 1gm) 1 gm in 250 mls @ 167 mls/hr IVPB Q12H AMIRA PRN Reason: Protocol Last Admin: 06/04/17 11:57 Dose: 167 mls/hr Piperacillin Sod/Tazobactam Sod (Zosyn 3.375 In Ns 100ml) 100 mls @ 200 mls/hr IVPB Q6 AMIRA PRN Reason: Protocol Stop: 06/10/17 12:01 Last Admin: 06/04/17 11:57 Dose: 200 mls/hr Oxychlorosene Sodium (Clorpactin Wcs-90) 2 gm TOP DAILY AMIRA Last Admin: 06/04/17 11:32 Dose: Not Given Oxycodone/Acetaminophen (Percocet 5/325 Mg Tab) 1 tab PO Q6H PRN PRN Reason: Pain, moderate (4-7) Stop: 06/06/17 19:18 Oxycodone/Acetaminophen (Percocet 5/325 Mg Tab) 2 tab PO Q6H PRN PRN Reason: Pain, severe (8-10) Stop: 06/06/17 19:18 - Labs Labs: 06/04/17 06:50 06/04/17 06:10 PT 12.4 Seconds (9.9-11.8) H 06/02/17 21:19 INR 1.15 (0.93-1.08) H 06/02/17 21:19 APTT 27.3 Seconds (23.7-30.8) 06/02/17 21:19 - Constitutional Appears: Non-toxic - Head Exam Head Exam: NORMAL INSPECTION - Eye Exam Eye Exam: EOMI, Normal appearance - ENT Exam ENT Exam: Mucous Membranes Moist - Neck Exam Neck Exam: Full ROM, Normal Inspection - Respiratory Exam Respiratory Exam: Clear to Ausculation Bilateral. absent: Accessory Muscle Use - Cardiovascular Exam Cardiovascular Exam: Bradycardia, REGULAR RHYTHM - GI/Abdominal Exam GI & Abdominal Exam: Soft. absent: Firm, Guarding, Tenderness - Extremities Exam Extremities Exam: Full ROM - Back Exam Back Exam: Full ROM, NORMAL INSPECTION. absent: tenderness - Neurological Exam Neurological Exam: Alert, Awake, Oriented x3 - Psychiatric Exam Psychiatric exam: Normal Affect, Normal Mood - Skin Skin Exam: Dry, Intact, Normal Color, Warm Assessment and Plan - Assessment and Plan (Free Text) Assessment: 61M w. LLE cellulitis and gangrene of 4th and 5th digit s/p 4th toe amputation POD#1 Plan: c/w pain control for fourth toe amputation POD#1 f/u LLE Xray f/u PVR ordered to assess vascular status monitor CBCs c/w zosyn and vanco continue local wound care -keep legs elevated -d/w Dr. Farrell -Lower extremity US -ARMANI And PVR normal at rest -subtle left SFA disease -Duplex US neg fort DVT Lizeth Philippe DO PGY1
--- NOTE | 2017-06-04 14:21 | CP.PCM.PN ---
Subjective - Date & Time of Evaluation Date of Evaluation: 06/04/17 Time of Evaluation: 11:15 - Subjective Subjective: Had amputation done of the 4th digit on the left foot, I and D of abscess and debridement. Feeling well, no fevers, no pain in the left foot. Objective - Vital Signs/Intake and Output Vital Signs (last 24 hours): Temp Pulse Resp BP Pulse Ox 99.1 F 46 L 18 150/70 96 06/04/17 06:00 06/04/17 06:00 06/04/17 06:00 06/04/17 06:00 06/04/17 06:00 Intake and Output: 06/04/17 06/04/17 06:59 18:59 Intake Total 0 Balance 0 - Medications Medications: Current Medications Acetaminophen (Tylenol 325mg Tab) 650 mg PO Q6H PRN PRN Reason: Pain, Mild (1-3) Sodium Chloride (Sodium Chloride 0.9%) 1,000 mls @ 100 mls/hr IV .Q10H [facility]IRA Last Admin: 06/02/17 20:30 Dose: 100 mls/hr Vancomycin HCl (Vancomycin 1gm) 1 gm in 250 mls @ 167 mls/hr IVPB Q12H AMIRA PRN Reason: Protocol Last Admin: 06/03/17 22:36 Dose: 167 mls/hr Piperacillin Sod/Tazobactam Sod (Zosyn 3.375 In Ns 100ml) 100 mls @ 200 mls/hr IVPB Q6 AMIRA PRN Reason: Protocol Stop: 06/10/17 12:01 Last Admin: 06/04/17 05:38 Dose: 200 mls/hr Oxychlorosene Sodium (Clorpactin Wcs-90) 2 gm TOP DAILY AMIRA Last Admin: 06/04/17 08:55 Dose: Not Given Oxycodone/Acetaminophen (Percocet 5/325 Mg Tab) 1 tab PO Q6H PRN PRN Reason: Pain, moderate (4-7) Stop: 06/06/17 19:18 Oxycodone/Acetaminophen (Percocet 5/325 Mg Tab) 2 tab PO Q6H PRN PRN Reason: Pain, severe (8-10) Stop: 06/06/17 19:18 - Labs Labs: 06/04/17 06:50 06/04/17 06:10 PT 12.4 Seconds (9.9-11.8) H 06/02/17 21:19 INR 1.15 (0.93-1.08) H 06/02/17 21:19 APTT 27.3 Seconds (23.7-30.8) 06/02/17 21:19 - Constitutional Appears: Non-toxic, No Acute Distress - Head Exam Head Exam: NORMAL INSPECTION - ENT Exam ENT Exam: Mucous Membranes Moist - Neck Exam Neck Exam: absent: Meningismus - Respiratory Exam Respiratory Exam: Decreased Breath Sounds - Cardiovascular Exam Cardiovascular Exam: +S1, +S2 - GI/Abdominal Exam GI & Abdominal Exam: Soft. absent: Tenderness Assessment and Plan - Assessment and Plan (Free Text) Plan: Assessment Consider left lower extremity skin and skin structure infection, R/O osteomyelitis, S/P debdridement, amputation of 4th toe, S/P I and D of abscess POD #1 pre-diabetes obesity with BMI 30 Plan continue Vancomycin and Zosyn pending blood, wound cx, ESR, CRP, foot-xrays, ARMANI 's will continue to monitor clinically
--- NOTE | 2017-06-04 17:18 | RAD ---
PROCEDURE: Left Foot Radiographs. HISTORY: s/p left foot 4th digit amputation COMPARISON: None. FINDINGS: BONES: Status post amputation 4th digit left foot however there appears to be destructive changes involving the head of the 4th metatarsal consistent osteomyelitis. Presumed packing material within and surrounding the amputation site. JOINTS: No change SOFT TISSUES: Normal. OTHER FINDINGS: None. IMPRESSION: Status post amputation 4th toe. Apparent destructive changes head of the 4th metatarsal consistent with osteomyelitis
[2017-06-04] MEDS: Sodium Chloride 0.9% 1,000 ML IV SCH (22:36)
[2017-06-05] MEDS: Piperacillin/Tazobact 3.375 gm 100 ML IVPB SCH ×4 (00:03→17:30)
--- NOTE | 2017-06-05 01:40 | PN ---
LOCATION: The patient is room #371, bed 2. SUBJECTIVE: The patient underwent an amputation of a toe. This was done by the brick sorter yesterday late afternoon/evening, Dr. Lagunas. She amputated the fourth digit of the left foot. The patient currently states he feels much better. He is eating and there are no significant events reported overnight. PHYSICAL EXAMINATION VITAL SIGNS: Temperature of 98.2, pulse rate of 58, blood pressure of 137/69, respiratory rate of 20 with an O2 saturation of 96% on room air. HEENT: Negative. NECK: Supple with no bruits or adenopathy. LUNGS: Clear bilaterally. HEART: Regular rate and rhythm with no murmurs, rubs, or gallops are appreciated. ABDOMEN: Soft, it is benign. There is no organomegaly and bowel sounds are normoactive. EXTREMITIES: The left leg is wrapped. The right leg shows no edema. NEUROLOGIC: There are no focal motor deficits. IMPRESSION: 1. Gangrene and osteomyelitis of the left fourth toe. 2. Cellulitis. Continue on intravenous antibiotics. Further management as per repeat x-rays. Abiodun Kenney MD
[2017-06-05 07:22] LABS: BASO # 0.02 K/mm3 (0.0-2.0); BASO % 0.3 % (0.0-3.0); EOS # 0.2 (0.0-0.7); EOS % 3.4 % (1.5-5.0); GRAN # 5.01 (1.4-6.5); GRAN % 71.4 % (50.0-68.0); HEMATOCRIT 30.2 % (42.0-52.0); LYMPH # 1.2 (1.2-3.4); LYMPH % 16.8 % (22.0-35.0); MEAN CELL VOLUME 85.6 fl (80.0-105.0); MEAN CORPUSCULAR HGB CONC 32.8 g/dl (31.0-37.0); MEAN PLATELET VOLUME 9.3 fl (7.0-11.0); MONO # 0.6 (0.1-0.6); MONO % 8.1 % (1.0-6.0); RED CELL DISTRIBUTION WIDTH 12.6 % (11.5-14.5)
[2017-06-05 07:53] LABS: ALB/GLOB RATIO 0.7 (1.1-1.8); ALKALINE PHOSPHATASE 72 U/L (38-126); ALT/SGPT 32 U/L (7-56); AST/SGOT 22 U/L (17-59); BILIRUBIN,TOTAL 0.4 mg/dL (0.2-1.3); BLOOD UREA NITROGEN 10 mg/dL (7-21); CALCIUM 7.6 mg/dL (8.4-10.5); CARBON DIOXIDE 26 mmol/L (21-33); CHLORIDE 107 mmol/L (98-107); GFR AFRICAN-AMERICAN > 60; GLUCOSE,RANDOM 222 mg/dL (70-110); POTASSIUM 3.7 mmol/L (3.6-5.0); SODIUM 141 mmol/L (132-148); TOTAL PROTEIN 6.1 g/dL (5.8-8.3)
[2017-06-05] MEDS: Oxychlorosene Topical 2 gm Packet TOP SCH (10:22)
--- NOTE | 2017-06-05 11:41 | CP.PCM.PN ---
Subjective - Date & Time of Evaluation Date of Evaluation: 06/05/17 Time of Evaluation: 06:50 - Subjective Subjective: Patient seen and examined. No acute events over night. Foot dressing c/d/i. Afebrile. Objective - Vital Signs/Intake and Output Vital Signs (last 24 hours): Temp Pulse Resp BP Pulse Ox 98.6 F 49 L 18 173/78 H 96 06/05/17 09:37 06/05/17 09:37 06/05/17 09:37 06/05/17 09:37 06/05/17 09:37 Intake and Output: 06/05/17 06/05/17 06:59 18:59 Intake Total 660 Output Total 800 Balance -140 - Medications Medications: Current Medications Acetaminophen (Tylenol 325mg Tab) 650 mg PO Q6H PRN PRN Reason: Pain, Mild (1-3) Sodium Chloride (Sodium Chloride 0.9%) 1,000 mls @ 100 mls/hr IV .Q10H [facility] Last Admin: 06/04/17 22:36 Dose: Not Given Vancomycin HCl (Vancomycin 1gm) 1 gm in 250 mls @ 167 mls/hr IVPB Q12H [facility] PRN Reason: Protocol Last Admin: 06/04/17 22:29 Dose: 167 mls/hr Piperacillin Sod/Tazobactam Sod (Zosyn 3.375 In Ns 100ml) 100 mls @ 200 mls/hr IVPB Q6 [facility] PRN Reason: Protocol Stop: 06/10/17 12:01 Last Admin: 06/05/17 05:17 Dose: 200 mls/hr Oxychlorosene Sodium (Clorpactin Wcs-90) 2 gm TOP DAILY [facility] Last Admin: 06/05/17 10:22 Dose: 2 gm Oxycodone/Acetaminophen (Percocet 5/325 Mg Tab) 1 tab PO Q6H PRN PRN Reason: Pain, moderate (4-7) Stop: 06/06/17 19:18 Last Admin: 06/05/17 09:41 Dose: 1 tab Oxycodone/Acetaminophen (Percocet 5/325 Mg Tab) 2 tab PO Q6H PRN PRN Reason: Pain, severe (8-10) Stop: 06/06/17 19:18 - Labs Labs: 06/05/17 07:15 06/05/17 07:15 PT 12.4 Seconds (9.9-11.8) H 06/02/17 21:19 INR 1.15 (0.93-1.08) H 06/02/17 21:19 APTT 27.3 Seconds (23.7-30.8) 06/02/17 21:19 - Constitutional Appears: No Acute Distress - Head Exam Head Exam: NORMOCEPHALIC - Eye Exam Eye Exam: Normal appearance - ENT Exam ENT Exam: Mucous Membranes Moist - Respiratory Exam Respiratory Exam: NORMAL BREATHING PATTERN - Cardiovascular Exam Cardiovascular Exam: +S1, +S2 - GI/Abdominal Exam GI & Abdominal Exam: Soft - Neurological Exam Neurological Exam: Alert, Awake, Oriented x3 - Psychiatric Exam Psychiatric exam: Normal Mood - Skin Skin Exam: Dry, Intact, Warm Assessment and Plan - Assessment and Plan (Free Text) Assessment: 61M w. LLE cellulitis and gangrene of 4th digit s/p 4th toe amputation and I&D POD#2 -Abx per ID -Local wound care per podiatry - Medical management per primary team -Will sign off. Please reconsult as needed -Further recs per Dr. Bud Self PGY-2
[2017-06-05] MEDS: Vancomycin 1gm in NS 250ml 1 GM/250 ML BAG IVPB SCH (12:05)
[2017-06-05] MEDS: Sodium Chloride 0.9% 1,000 ML IV SCH (12:06)
--- NOTE | 2017-06-05 12:19 | PN ---
DATE: LOCATION: The patient is in room 371, bed 2. SUBJECTIVE: The patient says he feels much better this morning and there have been no acute events overnight. PHYSICAL EXAMINATION: VITAL SIGNS: Stable with a temperature of 98.6, pulse rate of 49, blood pressure of 173/78, respiratory rate of 18 with 96% O2 saturation on room air. HEENT: Negative. NECK: Supple with full range of motion. LUNGS: Clear bilaterally. HEART: Regular rate and rhythm. No murmurs, rubs, or gallops. ABDOMEN: Benign. NEUROLOGIC: There are no focal deficits and the left foot is wrapped secondary to an amputation of the fourth toe. LABORATORY DATA: Hemoglobin and hematocrit of 9.9 and 30.2. Chemistry is normal with the exception of random glucose of 254. Preliminary wound cultures shows a two Gram-negative rods. Also Klebsiella pneumoniae and Enterobacter. We will continue the patient on current treatment for gangrene of the left fourth toe and osteomyelitis. Abiodun Kenney MD
--- NOTE | 2017-06-05 14:34 | CP.PCM.PN ---
<Chuck Regalado - Last Filed: 06/05/17 14:31> Subjective - Date & Time of Evaluation Date of Evaluation: 06/05/17 Time of Evaluation: 14:31 - Subjective Subjective: Podiatry Progress Note - Dr. Ng 61 year old male patient seen at bedside POD #2 amputation of left 4th digit, debridement of ulcer, and incision and drainage of abscess (DOS: 06/03/17). Patient seen resting comfortably, AAOx3 and NAD. Patient denies any acute events overnight. Patient states he has not been bearing any weight on his left foot at all. Patient states he had an upset stomach yesterday however is feeling better today. Patient denies any pain to his left foot but admits to numbness b/l. Patient denies N/V/F/D/C/SOB/calf pain. No other pedal complaints at this time. Objective - Vital Signs/Intake and Output Vital Signs (last 24 hours): Temp Pulse Resp BP Pulse Ox 98.6 F 49 L 18 173/78 H 96 06/05/17 09:37 06/05/17 09:37 06/05/17 09:37 06/05/17 09:37 06/05/17 09:37 Intake and Output: 06/05/17 06/05/17 06:59 18:59 Intake Total 660 Output Total 800 Balance -140 - Medications Medications: Current Medications Acetaminophen (Tylenol 325mg Tab) 650 mg PO Q6H PRN PRN Reason: Pain, Mild (1-3) Sodium Chloride (Sodium Chloride 0.9%) 1,000 mls @ 100 mls/hr IV .Q10H [facility] Last Admin: 06/05/17 12:06 Dose: 100 mls/hr Vancomycin HCl (Vancomycin 1gm) 1 gm in 250 mls @ 167 mls/hr IVPB Q12H [facility] PRN Reason: Protocol Last Admin: 06/05/17 12:05 Dose: 167 mls/hr Piperacillin Sod/Tazobactam Sod (Zosyn 3.375 In Ns 100ml) 100 mls @ 200 mls/hr IVPB Q6 [facility] PRN Reason: Protocol Stop: 06/10/17 12:01 Last Admin: 06/05/17 12:05 Dose: 200 mls/hr Oxychlorosene Sodium (Clorpactin Wcs-90) 2 gm TOP DAILY [facility] Last Admin: 06/05/17 10:22 Dose: 2 gm Oxycodone/Acetaminophen (Percocet 5/325 Mg Tab) 1 tab PO Q6H PRN PRN Reason: Pain, moderate (4-7) Stop: 06/06/17 19:18 Last Admin: 06/05/17 09:41 Dose: 1 tab Oxycodone/Acetaminophen (Percocet 5/325 Mg Tab) 2 tab PO Q6H PRN PRN Reason: Pain, severe (8-10) Stop: 06/06/17 19:18 - Labs Labs: 06/05/17 07:15 06/05/17 07:15 PT 12.4 Seconds (9.9-11.8) H 06/02/17 21:19 INR 1.15 (0.93-1.08) H 06/02/17 21:19 APTT 27.3 Seconds (23.7-30.8) 06/02/17 21:19 - Constitutional Appears: Well, Non-toxic, No Acute Distress - Extremities Exam Additional comments: Dressing to left foot is intact however some strikethrough is noted to plantar lateral forefoot VASC: DP and PT pulses palpable 2/4 b/l. CFT <3 seconds to digits 1-5 R, 1,2,3, 5 L. TG warm to warm b/l. Edema noted LLE. NEURO: Gross sensation absent. DERM: Open wound at 4th digit amputation site is noted to have healthy, granular tissue with mild serosanguinous drainage. 4th metatarsal head exposed, noted to have no articular cartilage remaining. Amputation site tunnels proximomedially toward plantar medial arch open wound - exposed plantar fascia noted at open wound site. Maceration noted at 1st and 2nd webspaces. No purulence was expressed from the left foot at this visit. ORTHO: No pain on palpation left foot. - Neurological Exam Neurological Exam: Alert, Awake, Oriented x3 - Psychiatric Exam Psychiatric exam: Normal Affect, Normal Mood Assessment and Plan - Assessment and Plan (Free Text) Assessment: 61 year old male POD #2 amputation of left 4th digit, debridement of ulcer, incision and drainage of abscess Plan: Patient seen and evaluated Discussed with attending, Dr. Ng Chart, vitals, labs reviewed = afebrile, WBC WNL @ 7.0, A1c 13.0 WoundVAC applied to left foot. Will change VAC 2-3x/week. Next change on Thursday , 06/08 Stressed the importance of strict NWB to left foot F/U physical thearpy consult - ambulation training NWB left foot with the assistance of walker Discussed with patient need to wait for pathology report prior to discharge planning in order to evaluate course of treatment. - If proximal margin +OM, patient may need 4-6 weeks of IV abx Left foot wound culture final report: klebsiella pneumoniae, enterobacter cloacae, staphylococus coag neg Podiatry will continue to follow while in house <Onur Ng - Last Filed: 06/06/17 08:22> Objective - Vital Signs/Intake and Output Vital Signs (last 24 hours): Temp Pulse Resp BP Pulse Ox 98.9 F 60 18 161/77 H 95 06/06/17 08:17 06/06/17 08:17 06/06/17 08:17 06/06/17 08:17 06/06/17 08:17 Intake and Output: 06/06/17 06/06/17 06:59 18:59 Intake Total 2300 Output Total 750 Balance 1550 - Medications Medications: Current Medications Acetaminophen (Tylenol 325mg Tab) 650 mg PO Q6H PRN PRN Reason: Pain, Mild (1-3) Sodium Chloride (Sodium Chloride 0.9%) 1,000 mls @ 100 mls/hr IV .Q10H [facility] Last Admin: 06/05/17 12:06 Dose: 100 mls/hr Vancomycin HCl (Vancomycin 1gm) 1 gm in 250 mls @ 167 mls/hr IVPB Q12H [facility] PRN Reason: Protocol Last Admin: 06/06/17 00:07 Dose: 167 mls/hr Piperacillin Sod/Tazobactam Sod (Zosyn 3.375 In Ns 100ml) 100 mls @ 200 mls/hr IVPB Q6 [facility] PRN Reason: Protocol Stop: 06/10/17 12:01 Last Admin: 06/06/17 05:13 Dose: 200 mls/hr Insulin Human Regular (Humulin R Med) 0 units SC ACHS [facility] PRN Reason: Protocol Last Admin: 06/06/17 02:16 Dose: Not Given Oxychlorosene Sodium (Clorpactin Wcs-90) 2 gm TOP DAILY [facility] Last Admin: 06/05/17 10:22 Dose: 2 gm Oxycodone/Acetaminophen (Percocet 5/325 Mg Tab) 1 tab PO Q6H PRN PRN Reason: Pain, moderate (4-7) Stop: 06/06/17 19:18 Last Admin: 06/05/17 09:41 Dose: 1 tab Oxycodone/Acetaminophen (Percocet 5/325 Mg Tab) 2 tab PO Q6H PRN PRN Reason: Pain, severe (8-10) Stop: 06/06/17 19:18 - Labs Labs: 06/06/17 07:00 06/06/17 07:00 PT 12.4 Seconds (9.9-11.8) H 06/02/17 21:19 INR 1.15 (0.93-1.08) H 06/02/17 21:19 APTT 27.3 Seconds (23.7-30.8) 06/02/17 21:19 Attending/Attestation - Attestation I have personally seen and examined this patient.: Yes I have fully participated in the care of the patient.: Yes I have reviewed all pertinent clinical information, including history, physical exam and plan: Yes
--- NOTE | 2017-06-05 16:39 | CP.PCM.PN ---
Subjective - Date & Time of Evaluation Date of Evaluation: 06/05/17 Time of Evaluation: 11:30 - Subjective Subjective: Less foot pain, no fevers overnight, wound vacuum has been placed over the left foot. Objective - Vital Signs/Intake and Output Vital Signs (last 24 hours): Temp Pulse Resp BP Pulse Ox 98.9 F 51 L 20 163/73 H 94 L 06/04/17 21:02 06/05/17 06:00 06/05/17 06:00 06/05/17 06:00 06/05/17 06:00 Intake and Output: 06/05/17 06/05/17 06:59 18:59 Intake Total 660 Output Total 800 Balance -140 - Medications Medications: Current Medications Acetaminophen (Tylenol 325mg Tab) 650 mg PO Q6H PRN PRN Reason: Pain, Mild (1-3) Sodium Chloride (Sodium Chloride 0.9%) 1,000 mls @ 100 mls/hr IV .Q10H [facility] Last Admin: 06/04/17 22:36 Dose: Not Given Vancomycin HCl (Vancomycin 1gm) 1 gm in 250 mls @ 167 mls/hr IVPB Q12H [facility] PRN Reason: Protocol Last Admin: 06/04/17 22:29 Dose: 167 mls/hr Piperacillin Sod/Tazobactam Sod (Zosyn 3.375 In Ns 100ml) 100 mls @ 200 mls/hr IVPB Q6 [facility] PRN Reason: Protocol Stop: 06/10/17 12:01 Last Admin: 06/05/17 05:17 Dose: 200 mls/hr Oxychlorosene Sodium (Clorpactin Wcs-90) 2 gm TOP DAILY [facility] Last Admin: 06/04/17 11:32 Dose: Not Given Oxycodone/Acetaminophen (Percocet 5/325 Mg Tab) 1 tab PO Q6H PRN PRN Reason: Pain, moderate (4-7) Stop: 06/06/17 19:18 Oxycodone/Acetaminophen (Percocet 5/325 Mg Tab) 2 tab PO Q6H PRN PRN Reason: Pain, severe (8-10) Stop: 06/06/17 19:18 - Labs Labs: 06/05/17 07:15 06/05/17 07:15 PT 12.4 Seconds (9.9-11.8) H 06/02/17 21:19 INR 1.15 (0.93-1.08) H 06/02/17 21:19 APTT 27.3 Seconds (23.7-30.8) 06/02/17 21:19 - Constitutional Appears: Non-toxic, No Acute Distress - Head Exam Head Exam: NORMAL INSPECTION - ENT Exam ENT Exam: Mucous Membranes Moist - Neck Exam Neck Exam: absent: Lymphadenopathy, Meningismus - Respiratory Exam Respiratory Exam: Decreased Breath Sounds - Cardiovascular Exam Cardiovascular Exam: +S1, +S2 - GI/Abdominal Exam GI & Abdominal Exam: Soft. absent: Tenderness - Extremities Exam Additional comments: left foot with wound vacuum in place Assessment and Plan - Assessment and Plan (Free Text) Plan: Assessment Consider left lower extremity skin and skin structure infection, R/O osteomyelitis, S/P debdridement, amputation of 4th toe, S/P I and D of abscess POD #2, growing Staph aureus, Klebsiella, Enterobacter pre-diabetes obesity with BMI 30 Plan continue Vancomycin and Zosyn sensitivities of the organisms in the foot as well as OR pathology will continue to monitor clinically
[2017-06-05] MEDS: Insulin Reg-MEDIUM-Coverage SC SCH (17:30)
[2017-06-05 18:42] LABS: URINE BILIRUBIN NEGATIVE (NEGATIVE); URINE BLOOD SMALL (NEGATIVE); URINE GLUCOSE (UA) 500 mg/dL (NEGATIVE); URINE KETONE 15 mg/dL (NEGATIVE); URINE LEUKOCYTE ESTERASE NEGATIVE Leu/uL (NEGATIVE); URINE PROTEIN 30 mg/dL (<30 mg/dL); URINE UROBILINOGEN 0.2 E.U./dL (<1 E.U./dL)
[2017-06-05 18:44] LABS: URINE APPEARANCE CLEAR (CLEAR); URINE COLOR YELLOW (YELLOW)
[2017-06-05 18:53] LABS: URINE BACTERIA RARE (NEG); URINE WBC 0 - 2 /hpf (0-6)
--- NOTE | 2017-06-05 19:58 | PN ---
DATE: SUBJECTIVE: José Miguel Ross is seen and I evaluated the patient at the time of the debridement done by Dr. Lagunas. The fourth toe left foot was necrotic. There was connection between and the pus pocket on the dorsal part of the foot,both of which were debrided in an excellent manner. The rest of the foot was edematous without signs of infection. The wound was examined today and the upper part of the ankle was normal with a little bit of edema. I will sign off and we will follow as necessary. Please recall. Naseem Farrell MD
[2017-06-06] MEDS: Vancomycin 1gm in NS 250ml 1 GM/250 ML BAG IVPB SCH ×3 (00:07→22:37)
[2017-06-06] MEDS: Piperacillin/Tazobact 3.375 gm 100 ML IVPB SCH ×4 (00:56→18:15)
[2017-06-06] MEDS: Insulin Reg-MEDIUM-Coverage SC SCH ×5 (02:16→22:14)
[2017-06-06 07:46] LABS: BASO # 0.02 K/mm3 (0.0-2.0); BASO % 0.3 % (0.0-3.0); EOS # 0.2 (0.0-0.7); GRAN # 4.86 (1.4-6.5); GRAN % 72.2 % (50.0-68.0); HEMATOCRIT 30.3 % (42.0-52.0); LYMPH # 1.2 (1.2-3.4); LYMPH % 17.8 % (22.0-35.0); MEAN CELL VOLUME 85.6 fl (80.0-105.0); MEAN CORPUSCULAR HEMOGLOBIN 27.4 pg (25.0-35.0); MEAN PLATELET VOLUME 9.6 fl (7.0-11.0); MONO # 0.5 (0.1-0.6); MONO % 6.7 % (1.0-6.0); RED CELL DISTRIBUTION WIDTH 12.5 % (11.5-14.5); WHITE BLOOD COUNT 6.7 10^3/ul (4.5-11.0)
[2017-06-06 07:58] LABS: ALB/GLOB RATIO 0.7 (1.1-1.8); ALKALINE PHOSPHATASE 76 U/L (38-126); ALT/SGPT 41 U/L (7-56); AST/SGOT 28 U/L (17-59); BILIRUBIN,TOTAL 0.4 mg/dL (0.2-1.3); BLOOD UREA NITROGEN 11 mg/dL (7-21); CALCIUM 7.8 mg/dL (8.4-10.5); CARBON DIOXIDE 26 mmol/L (21-33); CHLORIDE 107 mmol/L (95-110); GFR AFRICAN-AMERICAN > 60; GLUCOSE,RANDOM 175 mg/dL (70-110); POTASSIUM 3.5 mmol/L (3.6-5.0); SODIUM 143 mmol/L (132-148)
[2017-06-06] MEDS: Oxychlorosene Topical 2 gm Packet TOP SCH (09:53)
[2017-06-06] MEDS: Clotrimazole/Betamethasone Cream(15 gm) TOP SCH ×2 (10:01→18:16)
--- NOTE | 2017-06-06 10:46 | PN ---
DATE: 06/06/2017 LOCATION: The patient seen earlier in room 371, bed 2. SUBJECTIVE: The patient is in bed, in no acute distress. PHYSICAL EXAMINATION: VITAL SIGNS: Temperature is 98, blood pressure is 160/70, respiratory rate of 18, and heart rate of 60. HEENT: Unremarkable. NECK: Supple. LUNGS: Decreased breath sounds. HEART: Normal S1 and S2. ABDOMEN: Soft and nontender. LABORATORY DATA: Reveals white count of 6.7, hemoglobin of 9, platelets of 274, BUN of 11, and creatinine of 0.7. Microbiology reveals left foot with Staphylococcus aureus, pansensitive Staphylococcus aureus and is Klebsiella, Enterobacter cloacae and coagulase-negative Staphylococcus in another wound culture, on vancomycin and Zosyn. ASSESSMENT AND PLAN: A 61-year-old male with left lower extremity skin and skin soft tissue infection status post debridement most probably osteomyelitis, amputation of fourth toe status post incision and drainage of the abscess post procedure day number 3, sensitive Staphylococcus, also Klebsiella and Enterobacter and prediabetes, obesity with body mass index of 30 on vancomycin and Zosyn. Awaiting for OR final culture and pathology. Awaiting for pathology. We will follow with you. Robert Escalera MD
--- NOTE | 2017-06-06 11:08 | PN ---
SUBJECTIVE: A 61-year-old male, seen at bedside for continued evaluation and management of amputation on his left fourth digit secondary to osteomyelitis and severe abscess formation. The patient presents with wound VAC in place. The patient denies any fever, chills, nausea, vomiting or shortness of breath. He has no pain in his lower legs. PHYSICAL EXAMINATION: VITAL SIGNS: Reveal temperature of 98.9, pulse rate of 60, blood pressure of 161/77, respiratory rate of 18. EXTREMITIES: Palpable pedal pulses noted bilaterally. Wound VAC placement is noted. There are no air leaks upon examination. The canister has minimal drainage at this point. Capillary refilling time is within normal limits on the remaining digits of both feet. There is still a significant amount of lower extremity edema in the left lower leg. The patient has no pain upon palpation of the left gastroc soleus complex to suggest DVT. LABORATORY FINDINGS: Reveal white count of 6.7, hemoglobin of 9.7, hematocrit of 30.3, platelet count of 274. Microbiology report reveals Staphylococcus aureus growth. ASSESSMENT: A 61-year-old, postoperative day #3, amputation of left fourth digit with extensive surgical debridement of the accompanying ulceration as well as an incision and drainage of a severe abscess formation. PLAN: The patient was seen and evaluated. We will keep the wound VAC in place until Thursday at which time further evaluation of wound be determined, if we should keep the wound VAC on or not. At this point, there seems to be minimal serous drainage. However, the wound VAC is adamaris the wound and acting as a catalyst for wound closure. The patient will be seen and followed daily. Onur Ng DPM
[2017-06-06] MEDS: Potassium Chloride 20 mEq ER Tab PO SCH (18:16)
[2017-06-06] MEDS: Sodium Chloride 0.9% 1,000 ML IV SCH (19:26)
--- NOTE | 2017-06-06 22:20 | PN ---
DATE: SUBJECTIVE: The patient is a 61-year-old white male in room 371, bed 2. He states he is feeling better, sitting up in chair. His eating better. There have been no acute events overnight. PHYSICAL EXAMINATION: VITAL SIGNS: Temperature of 98.9, pulse rate of 60, blood pressure of 161/77, respiratory rate of 18 with an O2 saturation of 95% on room air. HEENT: PERRLA. EOMI. NECK: Supple with full range of motion. HEART: Regular rate and rhythm with no murmurs. LUNGS: Clear to auscultation and percussion bilaterally. ABDOMEN: Benign. EXTREMITIES: The left foot is wrapped. NEUROLOGIC: There are no focal motor deficit. CURRENT PROBLEMS: 1. Cellulitis. 2. Gangrene left fourth toe. We will continue intravenous antibiotics and further management as per Dr. Lagunas. Abiodun Kenney MD
[2017-06-07] MEDS: Piperacillin/Tazobact 3.375 gm 100 ML IVPB SCH ×4 (00:25→17:14)
[2017-06-07] MEDS: Sodium Chloride 0.9% 1,000 ML IV SCH ×3 (05:43→20:52)
[2017-06-07 07:25] LABS: BASO # 0.03 K/mm3 (0.0-2.0); BASO % 0.4 % (0.0-3.0); EOS # 0.3 (0.0-0.7); EOS % 3.9 % (1.5-5.0); GRAN # 4.68 (1.4-6.5); GRAN % 69.7 % (50.0-68.0); HEMATOCRIT 30.4 % (42.0-52.0); LYMPH # 1.2 (1.2-3.4); LYMPH % 18.5 % (22.0-35.0); MEAN CELL VOLUME 84.9 fl (80.0-105.0); MEAN CORPUSCULAR HEMOGLOBIN 27.7 pg (25.0-35.0); MEAN CORPUSCULAR HGB CONC 32.6 g/dl (31.0-37.0); MEAN PLATELET VOLUME 9.4 fl (7.0-11.0); MONO # 0.5 (0.1-0.6); MONO % 7.5 % (1.0-6.0); RED CELL DISTRIBUTION WIDTH 12.5 % (11.5-14.5); WHITE BLOOD COUNT 6.7 10^3/ul (4.5-11.0)
[2017-06-07 07:40] LABS: ALB/GLOB RATIO 0.8 (1.1-1.8); ALKALINE PHOSPHATASE 76 U/L (38-126); ALT/SGPT 39 U/L (7-56); AST/SGOT 33 U/L (17-59); BILIRUBIN,TOTAL 0.3 mg/dL (0.2-1.3); BLOOD UREA NITROGEN 9 mg/dL (7-21); CALCIUM 7.9 mg/dL (8.4-10.5); CARBON DIOXIDE 27 mmol/L (21-33); CHLORIDE 109 mmol/L (98-107); GFR AFRICAN-AMERICAN > 60; GLUCOSE,RANDOM 144 mg/dL (70-110); POTASSIUM 3.6 mmol/L (3.6-5.0); SODIUM 144 mmol/L (132-148)
[2017-06-07] MEDS: Insulin Reg-MEDIUM-Coverage SC SCH ×4 (08:49→22:10)
[2017-06-07] MEDS: Oxychlorosene Topical 2 gm Packet TOP SCH (09:30)
[2017-06-07] MEDS: Potassium Chloride 20 mEq ER Tab PO SCH ×2 (09:33→17:14)
[2017-06-07] MEDS: Clotrimazole/Betamethasone Cream(15 gm) TOP SCH ×2 (09:34→17:14)
--- NOTE | 2017-06-07 10:05 | CP.PCM.PN ---
<Manuela Velasquez - Last Filed: 06/07/17 10:00> Subjective - Date & Time of Evaluation Date of Evaluation: 06/07/17 Time of Evaluation: 09:30 - Subjective Subjective: Podiatry Progress Note - Dr. Ng 61 year old male patient seen at bedside POD #4 amputation of left 4th digit, debridement of ulcer, and incision and drainage of abscess. Pt seen resting comfortably in bed at time of visit. Per nursing and patient wound vac began to beep yesterday afternoon with message saying occlusion. Pt denies f/n/v/c/sob/cp /weakness. Says TYLER bandage to the leg feels good. Offers no other complaints. Objective - Vital Signs/Intake and Output Vital Signs (last 24 hours): Temp Pulse Resp BP Pulse Ox 98.1 F 58 L 20 158/68 H 94 L 06/07/17 08:08 06/07/17 08:08 06/07/17 08:08 06/06/17 16:08 06/07/17 08:08 - Medications Medications: Current Medications Acetaminophen (Tylenol 325mg Tab) 650 mg PO Q6H PRN PRN Reason: Pain, Mild (1-3) Betamethasone/Clotrimazole (Lotrisone) 0 gm TOP BID [facility] Last Admin: 06/07/17 09:34 Dose: 1 applic Sodium Chloride (Sodium Chloride 0.9%) 1,000 mls @ 100 mls/hr IV .Q10H [facility] Last Admin: 06/07/17 08:50 Dose: 100 mls/hr Vancomycin HCl (Vancomycin 1gm) 1 gm in 250 mls @ 167 mls/hr IVPB Q12H [facility] PRN Reason: Protocol Last Admin: 06/06/17 22:37 Dose: 167 mls/hr Piperacillin Sod/Tazobactam Sod (Zosyn 3.375 In Ns 100ml) 100 mls @ 200 mls/hr IVPB Q6 [facility] PRN Reason: Protocol Stop: 06/10/17 12:01 Last Admin: 06/07/17 05:43 Dose: 200 mls/hr Insulin Human Regular (Humulin R Med) 0 units SC ACHS [facility] PRN Reason: Protocol Last Admin: 06/07/17 08:49 Dose: 1 units Oxychlorosene Sodium (Clorpactin Wcs-90) 2 gm TOP DAILY [facility] Last Admin: 06/07/17 09:30 Dose: Not Given Potassium Chloride (K-Dur 20 Meq Er Tab) 20 meq PO BID [facility] Last Admin: 06/07/17 09:33 Dose: 20 meq - Labs Labs: 06/07/17 07:10 06/07/17 07:10 PT 12.4 Seconds (9.9-11.8) H 06/02/17 21:19 INR 1.15 (0.93-1.08) H 06/02/17 21:19 APTT 27.3 Seconds (23.7-30.8) 06/02/17 21:19 - Constitutional Appears: Well, Non-toxic, No Acute Distress - Extremities Exam Extremities Exam: absent: Calf Tenderness Additional comments: Dressing to left foot is clean, dry and intact Edema to left leg significantly reduced from yesterday No leak detected to wound vac, very minimal drainage - Neurological Exam Neurological Exam: Alert, Awake, Oriented x3 - Psychiatric Exam Psychiatric exam: Normal Affect, Normal Mood Assessment and Plan - Assessment and Plan (Free Text) Assessment: 61 year old male POD #4 amputation of left 4th digit, debridement of ulcer, incision and drainage of abscess Plan: Patient S&E Discussed with attending, Dr. Ng Chart, vitals, labs reviewed, afebrile, no leukocytosis Canister changed, wound vac left intact, per Dr. Ng wound vac to remain turned off today, to be changed on rounds tomorrow c/w NWB to left foot c/w PTT Awaiting sx pathology report Left foot wound culture final report: klebsiella pneumoniae, enterobacter cloacae, staphylococus coag neg Podiatry will continue to follow while in house <Onur Ng - Last Filed: 06/09/17 11:02> Objective - Vital Signs/Intake and Output Vital Signs (last 24 hours): Temp Pulse Resp BP Pulse Ox 98.1 F 65 18 165/82 H 96 06/09/17 08:40 06/09/17 08:40 06/09/17 08:40 06/09/17 08:40 06/09/17 08:40 Intake and Output: 06/09/17 06/09/17 06:59 18:59 Output Total 600 Balance -600 - Medications Medications: Current Medications Acetaminophen (Tylenol 325mg Tab) 650 mg PO Q6H PRN PRN Reason: Pain, Mild (1-3) Betamethasone/Clotrimazole (Lotrisone) 0 gm TOP BID [facility] Last Admin: 06/07/17 17:14 Dose: 1 applic Piperacillin Sod/Tazobactam Sod (Zosyn 3.375 In Ns 100ml) 100 mls @ 200 mls/hr IVPB Q6 [facility] PRN Reason: Protocol Stop: 06/10/17 12:01 Last Admin: 06/09/17 06:02 Dose: 200 mls/hr Insulin Human Regular (Humulin R Med) 0 units SC ACHS [facility] PRN Reason: Protocol Last Admin: 06/08/17 22:40 Dose: Not Given Lisinopril (Zestril) 20 mg PO DAILY [facility] Last Admin: 06/08/17 11:11 Dose: 20 mg Metformin HCl (Glucophage) 1,000 mg PO BRKDIN [facility] Last Admin: 06/08/17 17:42 Dose: 1,000 mg Oxychlorosene Sodium (Clorpactin Wcs-90) 2 gm TOP DAILY [facility] Last Admin: 06/07/17 09:30 Dose: Not Given Potassium Chloride (K-Dur 20 Meq Er Tab) 20 meq PO BID [facility] Last Admin: 06/08/17 17:42 Dose: 20 meq - Labs Labs: 06/09/17 06:41 06/09/17 06:41 PT 12.4 Seconds (9.9-11.8) H 06/02/17 21:19 INR 1.15 (0.93-1.08) H 06/02/17 21:19 APTT 27.3 Seconds (23.7-30.8) 06/02/17 21:19 Attending/Attestation - Attestation I have personally seen and examined this patient.: Yes I have fully participated in the care of the patient.: Yes I have reviewed all pertinent clinical information, including history, physical exam and plan: Yes
[2017-06-07] MEDS: Vancomycin 1gm in NS 250ml 1 GM/250 ML BAG IVPB SCH ×2 (10:38→22:33)
--- NOTE | 2017-06-07 12:23 | PN ---
DATE: 06/07/2017 SUBJECTIVE: The patient is in bed, in no acute distress, and nontoxic. PHYSICAL EXAMINATION: VITAL SIGNS: Temperature is 98, blood pressure is 150/60, and respiratory rate is 20. HEENT: Unremarkable. NECK: Supple. LUNGS: Decreased breath sounds. HEART: Normal S1 and S2. ABDOMEN: Soft. LABORATORY DATA: Reveals white count of 6.7, hemoglobin of 9, and platelets of 262. Coagulation is noted. Chemistries reveal BUN of 9 and creatinine of 0.7. Urinalysis is noted. Foot cultures are noted with Staph aureus, Klebsiella, Enterobacter, and coagulase-negative Staph and another one with Klebsiella, Enterobacter, and Enterococcus. Currently, the patient is on vancomycin and Zosyn. Dr. Abiodun Kenney's note is reviewed from yesterday. Dr. Ng's note is reviewed from yesterday. ASSESSMENT AND PLAN: A 61-year-old male with left lower extremity skin and skin soft tissue infection, status post debridement, most probably osteomyelitis, amputation of fourth toe, status post incision and drainage of the abscess, post procedure day number 4 with a sensitive Staphylococcus aureus, earlier cultures had Klebsiella, Enterobacter, and coagulase-negative Staphylococcus, but an earlier culture with Enterococcus. on vancomycin and Zosyn. Await for pathology and final culture results. Reviewed medications and reveals the patient is on vancomycin. On 11:15 in the morning, we will order a vancomycin, this morning at 10:15, we will order a vancomycin trough level this morning, and at 10:15 an hour 11:15 dose, review of the orders confirms the vancomycin and Zosyn to be active and the surgical pathology report pending. Chemistry holding a creatinine of 0.7. Robert Escalera MD
--- NOTE | 2017-06-07 13:30 | PN ---
SUBJECTIVE: The patient was seen and examined at bedside on the general medical serrano, no acute events overnight. He remains afebrile and hemodynamically stable. The patient is status post amputation of the fourth toe secondary to osteomyelitis with the gangrene POD #4. This morning he feels well and denies fever, chills, rigors, and overall offers no complaints. OBJECTIVE: VITAL SIGNS: Temperature of 98.1, pulse of 58, blood pressure of 156/60, respiratory rate of 20, and oxygen saturation of 96% on room air. GENERAL: No apparent distress. HEENT: PERRL. EOMI. No scleral icterus. No conjunctival pallor. NECK: No JVD. No bruits. LUNGS: Clear to auscultation. CARDIOVASCULAR: Regular rate and rhythm. Normal S1 and S2. ABDOMEN: Normoactive bowel sounds, soft, nontender, and nondistended. EXTREMITIES: No edema. Left lower extremity with resolution of cellulitic changes and remains wrapped with an Connor wrapping. NEUROLOGIC: Awake, alert, and oriented x3. No focal motor deficits. LABORATORY DATA: WBC of 6.7 with 70% neutrophils, hemoglobin of 9.9, hematocrit of 30, and platelets of 262. Chemistry reviewed and largely unremarkable. 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 PLAN: 1. Left lower extremity cellulitis, resolving. Input from Dr. Escalera of Infectious Diseases noted and appreciated and the patient remains Vancomycin 1 gram IV q. 12 hours and Zosyn 3.375 grams IV q. 6 hours. 2. Gangrene of the left foot fourth and fifth digits, status post amputation of the fourth digit POD #4. Input from Dr. Lagunas and podiatric team noted and appreciated, continue with local care as per Dr. Lagunas and podiatric team. Continue with antimicrobial as per Dr. Boghossian 3. Type 2 diabetes mellitus, new onset, uncontrolled with an A1c of 13 from this admission. We will start metformin 1000 mg p.o. b.i.d. and continue with a medium dose insulin sliding scale for coverage. CODE STATUS: Full code. Emerson Kenney MD MTDD
[2017-06-08] MEDS: Piperacillin/Tazobact 3.375 gm 100 ML IVPB SCH ×4 (00:23→17:42)
[2017-06-08 06:24] LABS: BASO # 0.04 K/mm3 (0.0-2.0); BASO % 0.6 % (0.0-3.0); EOS # 0.3 (0.0-0.7); EOS % 3.9 % (1.5-5.0); GRAN # 4.96 (1.4-6.5); GRAN % 71.5 % (50.0-68.0); HEMATOCRIT 30.8 % (42.0-52.0); LYMPH # 1.2 (1.2-3.4); LYMPH % 16.9 % (22.0-35.0); MEAN CELL VOLUME 84.8 fl (80.0-105.0); MEAN CORPUSCULAR HEMOGLOBIN 27.8 pg (25.0-35.0); MEAN CORPUSCULAR HGB CONC 32.8 g/dl (31.0-37.0); MEAN PLATELET VOLUME 9.2 fl (7.0-11.0); MONO # 0.5 (0.1-0.6); MONO % 7.1 % (1.0-6.0); RED CELL DISTRIBUTION WIDTH 12.6 % (11.5-14.5); WHITE BLOOD COUNT 6.9 10^3/ul (4.5-11.0)
[2017-06-08 06:48] LABS: ALB/GLOB RATIO 0.8 (1.1-1.8); ALKALINE PHOSPHATASE 71 U/L (38-126); ALT/SGPT 35 U/L (7-56); AST/SGOT 27 U/L (17-59); BILIRUBIN,TOTAL 0.3 mg/dL (0.2-1.3); BLOOD UREA NITROGEN 10 mg/dL (7-21); CARBON DIOXIDE 28 mmol/L (21-33); CHLORIDE 109 mmol/L (98-107); GFR AFRICAN-AMERICAN > 60; GLUCOSE,RANDOM 166 mg/dL (70-110); POTASSIUM 3.7 mmol/L (3.6-5.0); SODIUM 145 mmol/L (132-148); TOTAL PROTEIN 6.1 g/dL (5.8-8.3)
[2017-06-08] MEDS: Potassium Chloride 20 mEq ER Tab PO SCH ×2 (11:11→17:42)
--- NOTE | 2017-06-08 11:12 | PN ---
SUBJECTIVE: The patient was seen and examined at bedside on the general medical serrano, no acute events overnight. He remains afebrile and hemodynamically stable. This morning he states he feels well and offers no complaints and specifically denies fever, chills, rigors or pain at his left foot and is asking when he can go home. OBJECTIVE: VITAL SIGNS: Temperature of 98.9, pulse 66, blood pressure 180/80, respiratory rate of 20, and oxygen saturation of 95% on room air. GENERAL: No apparent distress. HEENT: PERRL. EOMI. No scleral icterus. No conjunctival pallor. NECK: No JVD. No bruits. LUNGS: Clear to auscultation. CARDIOVASCULAR: Regular rate and rhythm. Normal S1 and S2. ABDOMEN: Normoactive bowel sounds, soft, nontender, and nondistended. EXTREMITIES: No edema. Left lower extremity with resolution of cellulitic changes and remains in Connor wrapping. NEUROLOGIC: Awake, alert, and oriented x3. No focal motor deficits. LABORATORY DATA: WBC 6.9 with 72% neutrophils, hemoglobin 10, hematocrit 31, and platelets of 250. Chemistry reviewed and unremarkable. 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 PLAN: 1. Left lower extremity cellulitis, resolving. Input from Dr. Escalera of infectious disease noted and appreciated, and the patient remains on Vancomycin 1 g IV q. 12 hours and Zosyn 3.375 g IV q. 6 hours. 2. Gangrene of the left foot fourth and fifth digits, status post amputation of the fourth digit POD #5. Input from Dr. Lagunas of the podiatric team noted , continue with local care as per Dr. Lagunas. We will need to coordinate with Dr. Lagunas regarding the patient's disposition and need for continued wound care. 3. Type 2 diabetes mellitus, newly diagnosed, uncontrolled with an A1c of 13. Continue ISS and Metformin 1000 mg p.o. b.i.d. 4. Prophylaxis: GI prophylaxis is not indicated as the patient is eating. Continue with Venodyne for DVT prophylaxis. CODE STATUS: Full code. Emerson Kenney MD MTDD
[2017-06-08] MEDS: Vancomycin 1gm in NS 250ml 1 GM/250 ML BAG IVPB SCH (11:17)
[2017-06-08] MEDS: Insulin Reg-MEDIUM-Coverage SC SCH ×3 (12:49→22:40)
--- NOTE | 2017-06-08 15:41 | CP.PCM.PN ---
Subjective - Date & Time of Evaluation Date of Evaluation: 06/08/17 Time of Evaluation: 11:20 - Subjective Subjective: No fevers, not in distress. Objective - Vital Signs/Intake and Output Vital Signs (last 24 hours): Temp Pulse Resp BP Pulse Ox 98.9 F 66 20 180/80 H 95 06/08/17 08:18 06/08/17 08:18 06/08/17 08:18 06/08/17 08:18 06/08/17 08:18 Intake and Output: 06/08/17 06/08/17 06:59 18:59 Intake Total 480 Output Total 125 Balance 355 - Medications Medications: Current Medications Acetaminophen (Tylenol 325mg Tab) 650 mg PO Q6H PRN PRN Reason: Pain, Mild (1-3) Betamethasone/Clotrimazole (Lotrisone) 0 gm TOP BID [facility] Last Admin: 06/07/17 17:14 Dose: 1 applic Vancomycin HCl (Vancomycin 1gm) 1 gm in 250 mls @ 167 mls/hr IVPB Q12H [facility] PRN Reason: Protocol Last Admin: 06/07/17 22:33 Dose: 167 mls/hr Piperacillin Sod/Tazobactam Sod (Zosyn 3.375 In Ns 100ml) 100 mls @ 200 mls/hr IVPB Q6 [facility] PRN Reason: Protocol Stop: 06/10/17 12:01 Last Admin: 06/08/17 06:08 Dose: 200 mls/hr Insulin Human Regular (Humulin R Med) 0 units SC ACHS [facility] PRN Reason: Protocol Last Admin: 06/07/17 22:10 Dose: Not Given Lisinopril (Zestril) 20 mg PO DAILY [facility] Metformin HCl (Glucophage) 1,000 mg PO BRKDIN [facility] Last Admin: 06/08/17 09:19 Dose: 1,000 mg Oxychlorosene Sodium (Clorpactin Wcs-90) 2 gm TOP DAILY [facility] Last Admin: 06/07/17 09:30 Dose: Not Given Potassium Chloride (K-Dur 20 Meq Er Tab) 20 meq PO BID [facility] Last Admin: 06/07/17 17:14 Dose: 20 meq - Labs Labs: 06/08/17 05:40 06/08/17 05:40 PT 12.4 Seconds (9.9-11.8) H 06/02/17 21:19 INR 1.15 (0.93-1.08) H 06/02/17 21:19 APTT 27.3 Seconds (23.7-30.8) 06/02/17 21:19 - Constitutional Appears: Non-toxic, No Acute Distress - Head Exam Head Exam: NORMAL INSPECTION - ENT Exam ENT Exam: Mucous Membranes Moist - Neck Exam Neck Exam: absent: Meningismus - Respiratory Exam Respiratory Exam: Decreased Breath Sounds - Cardiovascular Exam Cardiovascular Exam: +S1, +S2 - GI/Abdominal Exam GI & Abdominal Exam: Soft. absent: Tenderness - Extremities Exam Additional comments: left foot with dressings in place Assessment and Plan - Assessment and Plan (Free Text) Plan: Assessment Consider left lower extremity skin and skin structure infection, R/O osteomyelitis, S/P debdridement, amputation of 4th toe, S/P I and D of abscess POD #5, growing Methicillin-sensitivie Staph aureus, Klebsiella, Enterobacter pre-diabetes obesity with BMI 30 Plan continue Zosyn; OR pathology showing gangrene and osteomyelitis - will need 4-6 weeks of antibiotics with weekly ESR, CRP, CBC, CMP with outpatient follow up with Podiatry will continue to monitor clinically while the patient is in the hospital
--- NOTE | 2017-06-08 20:19 | CP.PCM.PN ---
Subjective - Date & Time of Evaluation Date of Evaluation: 06/08/17 Time of Evaluation: 12:00 - Subjective Subjective: Podiatry Progress Note - Dr. Lagunas 61 year old male patient seen at bedside POD#5 left foot amputation of 4th digit , debridement of ulcer, and incision and drainage of abscess (DOS: 06/03/17). Patient seen out of bed and in chair at time of visit, AAOx3 and NAD. Patient denies any acute events overnight. Patient denies any pain to his left foot today. Patient states yesterday his VAC was removed because it was beeping over the weekend. Patient states he has been seeing physical therapy for help with ambulation with a walker. Per physical therapy, patient had difficulty performing strict NWB with a rolling walker and did bear weight on left heel. Patient denies N/V/F/D/C/SOB/calf pain. No other pedal complaints at this time. Objective - Vital Signs/Intake and Output Vital Signs (last 24 hours): Temp Pulse Resp BP Pulse Ox 98.9 F 53 L 20 160/70 H 95 06/08/17 16:00 06/08/17 16:00 06/08/17 16:00 06/08/17 16:00 06/08/17 16:00 Intake and Output: 06/08/17 06/09/17 18:59 06:59 Intake Total 240 Output Total 651 Balance -411 - Medications Medications: Current Medications Acetaminophen (Tylenol 325mg Tab) 650 mg PO Q6H PRN PRN Reason: Pain, Mild (1-3) Betamethasone/Clotrimazole (Lotrisone) 0 gm TOP BID [facility] Last Admin: 06/07/17 17:14 Dose: 1 applic Piperacillin Sod/Tazobactam Sod (Zosyn 3.375 In Ns 100ml) 100 mls @ 200 mls/hr IVPB Q6 [facility] PRN Reason: Protocol Stop: 06/10/17 12:01 Last Admin: 06/08/17 17:42 Dose: 200 mls/hr Insulin Human Regular (Humulin R Med) 0 units SC ACHS [facility] PRN Reason: Protocol Last Admin: 06/08/17 17:39 Dose: Not Given Lisinopril (Zestril) 20 mg PO DAILY [facility] Last Admin: 06/08/17 11:11 Dose: 20 mg Metformin HCl (Glucophage) 1,000 mg PO BRKDIN [facility] Last Admin: 06/08/17 17:42 Dose: 1,000 mg Oxychlorosene Sodium (Clorpactin Wcs-90) 2 gm TOP DAILY [facility] Last Admin: 06/07/17 09:30 Dose: Not Given Potassium Chloride (K-Dur 20 Meq Er Tab) 20 meq PO BID [facility] Last Admin: 06/08/17 17:42 Dose: 20 meq - Labs Labs: 06/08/17 05:40 06/08/17 05:40 PT 12.4 Seconds (9.9-11.8) H 06/02/17 21:19 INR 1.15 (0.93-1.08) H 06/02/17 21:19 APTT 27.3 Seconds (23.7-30.8) 06/02/17 21:19 - Constitutional Appears: Well, Non-toxic, No Acute Distress - Extremities Exam Additional comments: VASC: DP and PT pulses palpable 2/4 b/l. CFT wnl. TG warm to warm b/l. Edema noted LLE. NEURO: Gross sensation absent. DERM: Open wound at 4th digit amputation site is noted to have healthy, granular tissue with serosanguinous drainage. 4th metatarsal head exposed, noted to have no articular cartilage remaining. Amputation site tunnels proximomedially toward plantar medial arch open wound - exposed plantar fascia noted at open wound site. Moderate maceration noted where previous WoundVAC was applied with peeling skin globally around left foot. No purulence able to be expressed. ORTHO: No pain on palpation left foot. - Neurological Exam Neurological Exam: Alert, Awake, Oriented x3 - Psychiatric Exam Psychiatric exam: Normal Affect, Normal Mood Assessment and Plan - Assessment and Plan (Free Text) Assessment: 61 year old male POD #5 amputation of left 4th digit, debridement of ulcer, incision and drainage of abscess Plan: Patient seen and evaluated at bedside with attending, Dr. Lagunas Chart, vitals, labs reviewed = afebrile, WBC wnl 6.9, A1c 13.0 WoundVAC removed from left foot and dressed with DSD. Will reapply VAC tomorrow once maceration decreases. - Plan for Thursday//Thursday VAC changes Pathology report reviewed: gangrenous necrosis, abscess, and acute osteomyelitis. Description states due to fragmented nature of specimen, resection margin cannot be determined. Per ID, patient will need 4-6 weeks of abx with weekly ESR/CRP/CBC/CMP. Continue Zosyn Continue NWB to left foot with the assistance of roller walker; stressed importance of strict NWB LLE s/p surgery Podiatry will continue to follow while in house
[2017-06-09] MEDS: Piperacillin/Tazobact 3.375 gm 100 ML IVPB SCH ×5 (00:18→23:47)
[2017-06-09 07:05] LABS: BASO # 0.04 K/mm3 (0.0-2.0); BASO % 0.6 % (0.0-3.0); EOS # 0.3 (0.0-0.7); EOS % 4.3 % (1.5-5.0); GRAN # 5.06 (1.4-6.5); GRAN % 69.7 % (50.0-68.0); HEMATOCRIT 30.5 % (42.0-52.0); LYMPH # 1.2 (1.2-3.4); MEAN CELL VOLUME 84.5 fl (80.0-105.0); MEAN CORPUSCULAR HEMOGLOBIN 27.7 pg (25.0-35.0); MEAN CORPUSCULAR HGB CONC 32.8 g/dl (31.0-37.0); MEAN PLATELET VOLUME 9.4 fl (7.0-11.0); MONO # 0.6 (0.1-0.6); MONO % 8.4 % (1.0-6.0); RED CELL DISTRIBUTION WIDTH 12.8 % (11.5-14.5); WHITE BLOOD COUNT 7.3 10^3/ul (4.5-11.0)
[2017-06-09 07:08] LABS: ALB/GLOB RATIO 0.8 (1.1-1.8); ALKALINE PHOSPHATASE 67 U/L (38-126); ALT/SGPT 29 U/L (7-56); AST/SGOT 23 U/L (17-59); BILIRUBIN,TOTAL 0.4 mg/dL (0.2-1.3); BLOOD UREA NITROGEN 8 mg/dL (7-21); CALCIUM 8.1 mg/dL (8.4-10.5); CARBON DIOXIDE 26 mmol/L (21-33); CHLORIDE 108 mmol/L (98-107); GFR AFRICAN-AMERICAN > 60; GLUCOSE,RANDOM 117 mg/dL (70-110); POTASSIUM 3.6 mmol/L (3.6-5.0); SODIUM 145 mmol/L (132-148); TOTAL PROTEIN 6.2 g/dL (5.8-8.3)
--- NOTE | 2017-06-09 10:07 | PN ---
SUBJECTIVE: The patient was seen and examined at bedside on the general medical serrano. No acute events overnight. He remains afebrile and hemodynamically stable s/p operative debridement of his left lower extremity wound with dry gangrene and amputation of his left foot fourth digit secondary to osteomyelitis and overall he offers no complaints. OBJECTIVE: VITAL SIGNS: Temperature 98.1, pulse 65, blood pressure 165/82, respiratory rate 18, oxygen saturation 96% on room air. GENERAL: No apparent distress. HEENT: PERRL. EOMI. No scleral icterus. No conjunctival pallor. NECK: No JVD. No bruit. LUNGS: Clear to auscultation. CARDIOVASCULAR: Regular rate and rhythm. Normal S1 and S2. ABDOMEN: Normoactive bowel sounds, soft, nontender, nondistended. EXTREMITIES: No edema on the right. Left lower extremity with mild edema and erythema with surgical dressing in place. NEUROLOGIC: Awake, alert, and oriented x3. No focal motor deficits. LABORATORY DATA: WBC is 7.3 with 70 neutrophils, hemoglobin 10, hematocrit 30, and platelets 240. Chemistry reviewed and unremarkable. 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 PLAN: 1. Left lower extremity cellulitis, resolving. Input from Dr. Escalera of infectious disease noted and appreciated. The patient remains on Vancomycin 1 g IV q. 12 hours and Zosyn 3.375 g IV q. 6 hours. 2. Gangrene of the left foot fourth and fifth digits with osteomyelitis s/p amputation of the fourth digit POD #6. Input from Dr. Lagunas of the podiatric team noted and appreciated. Continue with local wound care as per Dr. Lgaunas. Given OR pathology report demonstrating osteomyelitis, the patient will require 4 to 6 weeks of antibiotics. We will need to discuss with the infectious disease team regarding antimicrobial choice and if IV antibiotics are indicated , we will consult with Dr. Willian Blanco for PICC line placement. 3. T2DM, newly diagnosed, uncontrolled with an A1c of 13, continue with insulin sliding scale and Metformin 1000 mg p.o. b.i.d. 4. Hypertension, continue with lisinopril 20 mg p.o. daily. 5. Prophylaxis, GI prophylaxis not indicated as the patient is eating. Continue with Venodyne for DVT prophylaxis. CODE STATUS: Full code. Emerson Kenney MD MTDD
[2017-06-09] MEDS: Potassium Chloride 20 mEq ER Tab PO SCH ×2 (10:08→18:28)
--- NOTE | 2017-06-09 10:47 | CP.PCM.PN ---
<Chuck Regalado - Last Filed: 06/09/17 14:06> Subjective - Date & Time of Evaluation Date of Evaluation: 06/09/17 Time of Evaluation: 10:46 - Subjective Subjective: Podiatry Progress Note - Dr. Ng 61 year old male patient seen at bedside POD#6 left foot amputation of 4th digit , debridement of ulcer, and incision and drainage of abscess (DOS 06/03/17). Patient seen at resting comfortably in bed, AAOx3 and NAD. Patient denies any acute events overnight. Patient denies any pain to his left foot today. Patient states he worked with physical therapy to ambulate with the assistance of a walker and states he had no difficulties with NWB to left foot however states he occasionally bears weight to his left heel. Patient denies N/V/F/D/C/SOB/ calf pain. No other pedal complaints at this time. Objective - Vital Signs/Intake and Output Vital Signs (last 24 hours): Temp Pulse Resp BP Pulse Ox 98.1 F 65 18 165/82 H 96 06/09/17 08:40 06/09/17 08:40 06/09/17 08:40 06/09/17 08:40 06/09/17 08:40 Intake and Output: 06/09/17 06/09/17 06:59 18:59 Output Total 600 Balance -600 - Medications Medications: Current Medications Acetaminophen (Tylenol 325mg Tab) 650 mg PO Q6H PRN PRN Reason: Pain, Mild (1-3) Betamethasone/Clotrimazole (Lotrisone) 0 gm TOP BID [facility] Last Admin: 06/07/17 17:14 Dose: 1 applic Piperacillin Sod/Tazobactam Sod (Zosyn 3.375 In Ns 100ml) 100 mls @ 200 mls/hr IVPB Q6 [facility] PRN Reason: Protocol Stop: 06/10/17 12:01 Last Admin: 06/09/17 06:02 Dose: 200 mls/hr Insulin Human Regular (Humulin R Med) 0 units SC ACHS [facility] PRN Reason: Protocol Last Admin: 06/08/17 22:40 Dose: Not Given Lisinopril (Zestril) 20 mg PO DAILY [facility] Last Admin: 06/08/17 11:11 Dose: 20 mg Metformin HCl (Glucophage) 1,000 mg PO BRKDIN [facility] Last Admin: 06/08/17 17:42 Dose: 1,000 mg Oxychlorosene Sodium (Clorpactin Wcs-90) 2 gm TOP DAILY [facility] Last Admin: 06/07/17 09:30 Dose: Not Given Potassium Chloride (K-Dur 20 Meq Er Tab) 20 meq PO BID [facility] Last Admin: 06/08/17 17:42 Dose: 20 meq - Labs Labs: 06/09/17 06:41 06/09/17 06:41 PT 12.4 Seconds (9.9-11.8) H 06/02/17 21:19 INR 1.15 (0.93-1.08) H 06/02/17 21:19 APTT 27.3 Seconds (23.7-30.8) 06/02/17 21:19 - Constitutional Appears: Well, Non-toxic, No Acute Distress - Extremities Exam Additional comments: Dressing to left foot is intact but moderate strikethrough noted to plantar aspect. VASC: DP and PT pulses palpable 2/4 b/l. CFT wnl. TG warm to warm b/l. Edema noted LLE. NEURO: Gross sensation absent. DERM: Open wound at 4th digit amputation site is noted to have mixed fibrogranular tissue with serosanguinous drainage. 4th metatarsal head exposed, noted to have no articular cartilage remaining. Amputation site tunnels proximomedially toward plantar medial arch open wound - exposed plantar fascia noted at open wound site. Moderate maceration noted around 5th digit. No purulence able to be expressed. ORTHO: No pain on palpation left foot. - Neurological Exam Neurological Exam: Alert, Awake, Oriented x3 Assessment and Plan - Assessment and Plan (Free Text) Assessment: 61 year old male POD #6 amputation of left 4th digit, debridement of ulcer, incision and drainage of abscess Plan: Patient seen and evaluated at bedside with attending, Dr. Ng Chart, vitals, labs reviewed = afebrile, WBC 7.3 WoundVAC applied to left foot - Thursday//Thursday dressing changes Pathology report reviewed: gangrenous necrosis, abscess, and acute osteomyelitis. Description states due to fragmented nature of specimen, resection margin cannot be determined. Per ID, patient will need 4-6 weeks of abx. Continue Zosyn Continue NWB to left foot with the assistance of roller walker; stressed importance of strict NWB LLE s/p surgery Podiatry will continue to follow while in house <Onur Ng - Last Filed: 06/12/17 11:36> Objective - Vital Signs/Intake and Output Vital Signs (last 24 hours): Temp Pulse Resp BP Pulse Ox 98.0 F 70 20 165/90 H 95 06/12/17 06:00 06/12/17 10:03 06/12/17 06:00 06/12/17 10:03 06/12/17 06:00 Intake and Output: 06/12/17 06/12/17 06:59 18:59 Intake Total 540 360 Output Total 200 400 Balance 340 -40 - Medications Medications: Current Medications Acetaminophen (Tylenol 325mg Tab) 650 mg PO Q6H PRN PRN Reason: Pain, Mild (1-3) Betamethasone/Clotrimazole (Lotrisone) 0 gm TOP BID [facility] Last Admin: 06/12/17 10:03 Dose: 1 applic Insulin Human Regular (Humulin R Med) 0 units SC ACHS [facility] PRN Reason: Protocol Last Admin: 06/12/17 08:24 Dose: Not Given Lisinopril (Zestril) 40 mg PO DAILY [facility] Last Admin: 06/12/17 10:03 Dose: 40 mg Metformin HCl (Glucophage) 1,000 mg PO BRKDIN [facility] Last Admin: 06/12/17 10:02 Dose: 1,000 mg Oxychlorosene Sodium (Clorpactin Wcs-90) 2 gm TOP DAILY [facility] Last Admin: 06/11/17 11:55 Dose: 2 gm Potassium Chloride (K-Dur 20 Meq Er Tab) 20 meq PO BID [facility] Last Admin: 06/12/17 10:03 Dose: 20 meq - Labs Labs: 06/12/17 08:30 06/12/17 08:30 PT 12.4 Seconds (9.9-11.8) H 06/02/17 21:19 INR 1.15 (0.93-1.08) H 06/02/17 21:19 APTT 27.3 Seconds (23.7-30.8) 06/02/17 21:19 Attending/Attestation - Attestation I have personally seen and examined this patient.: Yes I have fully participated in the care of the patient.: Yes I have reviewed all pertinent clinical information, including history, physical exam and plan: Yes
--- NOTE | 2017-06-09 11:53 | CP.PCM.PN ---
Subjective - Date & Time of Evaluation Date of Evaluation: 06/09/17 Time of Evaluation: 10:25 - Subjective Subjective: Comfortable, no fevers. Objective - Vital Signs/Intake and Output Vital Signs (last 24 hours): Temp Pulse Resp BP Pulse Ox 98.9 F 53 L 20 160/70 H 95 06/08/17 16:00 06/08/17 16:00 06/08/17 16:00 06/08/17 16:00 06/08/17 16:00 Intake and Output: 06/09/17 06/09/17 06:59 18:59 Output Total 600 Balance -600 - Medications Medications: Current Medications Acetaminophen (Tylenol 325mg Tab) 650 mg PO Q6H PRN PRN Reason: Pain, Mild (1-3) Betamethasone/Clotrimazole (Lotrisone) 0 gm TOP BID [facility] Last Admin: 06/07/17 17:14 Dose: 1 applic Piperacillin Sod/Tazobactam Sod (Zosyn 3.375 In Ns 100ml) 100 mls @ 200 mls/hr IVPB Q6 [facility] PRN Reason: Protocol Stop: 06/10/17 12:01 Last Admin: 06/09/17 06:02 Dose: 200 mls/hr Insulin Human Regular (Humulin R Med) 0 units SC ACHS [facility] PRN Reason: Protocol Last Admin: 06/08/17 22:40 Dose: Not Given Lisinopril (Zestril) 20 mg PO DAILY [facility] Last Admin: 06/08/17 11:11 Dose: 20 mg Metformin HCl (Glucophage) 1,000 mg PO BRKDIN [facility] Last Admin: 06/08/17 17:42 Dose: 1,000 mg Oxychlorosene Sodium (Clorpactin Wcs-90) 2 gm TOP DAILY [facility] Last Admin: 06/07/17 09:30 Dose: Not Given Potassium Chloride (K-Dur 20 Meq Er Tab) 20 meq PO BID [facility] Last Admin: 06/08/17 17:42 Dose: 20 meq - Labs Labs: 06/09/17 06:41 06/09/17 06:41 PT 12.4 Seconds (9.9-11.8) H 06/02/17 21:19 INR 1.15 (0.93-1.08) H 06/02/17 21:19 APTT 27.3 Seconds (23.7-30.8) 06/02/17 21:19 - Constitutional Appears: Non-toxic, No Acute Distress - Head Exam Head Exam: NORMAL INSPECTION - Neck Exam Neck Exam: absent: Meningismus - Respiratory Exam Respiratory Exam: Decreased Breath Sounds - Cardiovascular Exam Cardiovascular Exam: +S1, +S2 - GI/Abdominal Exam GI & Abdominal Exam: Soft. absent: Tenderness - Extremities Exam Additional comments: left foot with dressings in place Assessment and Plan - Assessment and Plan (Free Text) Plan: Assessment Consider left lower extremity skin and skin structure infection, R/O osteomyelitis, S/P debdridement, amputation of 4th toe, S/P I and D of abscess POD #6, growing Methicillin-sensitivie Staph aureus, Klebsiella, Enterobacter pre-diabetes obesity with BMI 30 Plan continue Zosyn; OR pathology showing gangrene and osteomyelitis - will need 4-6 weeks of antibiotics with weekly ESR, CRP, CBC, CMP with outpatient follow up with Podiatry; for once daily dosing, an option would be Daptomycin and Ertapenem once a day and add CPK levels to weekly labs will continue to monitor clinically while the patient is in the hospital
[2017-06-09] MEDS: Insulin Reg-MEDIUM-Coverage SC SCH ×3 (14:00→22:00)
[2017-06-10] MEDS: Piperacillin/Tazobact 3.375 gm 100 ML IVPB SCH ×2 (05:31→11:44)
[2017-06-10 06:40] LABS: ALB/GLOB RATIO 0.7 (1.1-1.8); ALKALINE PHOSPHATASE 66 U/L (38-126); ALT/SGPT 34 U/L (7-56); AST/SGOT 20 U/L (17-59); BILIRUBIN,TOTAL 0.5 mg/dL (0.2-1.3); BLOOD UREA NITROGEN 8 mg/dL (7-21); CALCIUM 8.2 mg/dL (8.4-10.5); CARBON DIOXIDE 28 mmol/L (21-33); CHLORIDE 105 mmol/L (95-110); GFR AFRICAN-AMERICAN > 60; GLUCOSE,RANDOM 137 mg/dL (70-110); POTASSIUM 3.5 mmol/L (3.6-5.0); SODIUM 143 mmol/L (132-148); TOTAL PROTEIN 6.4 g/dL (5.8-8.3)
[2017-06-10 06:48] LABS: BASO # 0.04 K/mm3 (0.0-2.0); BASO % 0.6 % (0.0-3.0); EOS # 0.3 (0.0-0.7); GRAN # 4.6 (1.4-6.5); GRAN % 67.6 % (50.0-68.0); LYMPH # 1.3 (1.2-3.4); LYMPH % 18.7 % (22.0-35.0); MEAN CELL VOLUME 84.2 fl (80.0-105.0); MEAN CORPUSCULAR HEMOGLOBIN 27.2 pg (25.0-35.0); MEAN CORPUSCULAR HGB CONC 32.3 g/dl (31.0-37.0); MEAN PLATELET VOLUME 9.3 fl (7.0-11.0); MONO # 0.6 (0.1-0.6); MONO % 8.1 % (1.0-6.0); RED CELL DISTRIBUTION WIDTH 12.9 % (11.5-14.5); WHITE BLOOD COUNT 6.8 10^3/ul (4.5-11.0)
[2017-06-10] MEDS: Insulin Reg-MEDIUM-Coverage SC SCH ×4 (08:24→22:27)
[2017-06-10] MEDS: Potassium Chloride 20 mEq ER Tab PO SCH ×2 (09:21→17:58)
--- NOTE | 2017-06-10 09:48 | PN ---
SUBJECTIVE: The patient was seen and examined at bedside on the general medical [facility]. No acute events overnight. He remains afebrile and hemodynamically stable s/p operative debridement of his left lower extremity wound with dry gangrene and amputation of his left foot fourth digit secondary to osteomyelitis. At present arrangements are being made for long-term antibiotics and continued care at home with visiting nursing services. OBJECTIVE: VITAL SIGNS: Temperature 98.9, pulse 62, blood pressure 166/86, respiratory rate 20, and oxygen saturation 96% on room air. GENERAL: No apparent distress. HEENT: PERRL. EOMI. No scleral icterus. No conjunctival pallor. NECK: No JVD. No bruit. LUNGS: Clear to auscultation. CARDIOVASCULAR: Regular rate and rhythm. Normal S1 and S2. ABDOMEN: Normoactive bowel sounds, soft, nontender, nondistended. EXTREMITIES: LLE with mild edema and erythema with surgical dressing in place and wound VAC in place. NEUROLOGIC: Awake, alert, and oriented x3. No focal motor deficits. LABORATORY DATA: WBC is 6.8 with 67% neutrophils, hemoglobin 10, hematocrit 31, and platelets 245. Chemistry reviewed and largely unremarkable. 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 PLAN: 1. LLE cellulitis, resolving. Input from Dr. Kasper noted and appreciated and the patient remains on Vancomycin 1 g IV q.12 hours and Zosyn 3.375 g IV q.6 hours. 2. Gangrene of the left foot fourth and fifth digits with osteomyelitis s/p amputation of the fourth digit POD #7. Input from Dr. Lagunas and the podiatric team noted and appreciated. The patient will require 4 to [address] Kasper's note is reviewed and either daptomycin or ertapenem are the recommended antibiotics. Arrangements will be made for PICC line placement facility and long-term IV antibiotics. 3. Type 2 diabetes mellitus, newly diagnosed, uncontrolled with an A1c of 13. Continue ISS and Metformin 1000 mg p.o. b.i.d. 4. Hypertension. Continue with Lisinopril 20 mg p.o. daily. 5. Prophylaxis. GI prophylaxis not indicated, as the patient is eating. Continue with Venodyne for DVT prophylaxis. CODE STATUS: Full code. Emerson Kenney MD MTDD
[2017-06-10] MEDS: Oxychlorosene Topical 2 gm Packet TOP SCH (10:00)
[2017-06-10] MEDS: Clotrimazole/Betamethasone Cream(15 gm) TOP SCH ×2 (10:00→18:04)
--- NOTE | 2017-06-10 10:32 | CP.PCM.PN ---
Subjective - Date & Time of Evaluation Date of Evaluation: 06/10/17 Time of Evaluation: 09:45 - Subjective Subjective: Comfortable, afebrile. Objective - Vital Signs/Intake and Output Vital Signs (last 24 hours): Temp Pulse Resp BP Pulse Ox 98.4 F 69 20 144/74 93 L 06/09/17 16:00 06/09/17 16:00 06/09/17 16:00 06/09/17 16:00 06/09/17 16:00 Intake and Output: 06/09/17 06/10/17 18:59 06:59 Intake Total 360 Output Total 300 Balance 60 - Medications Medications: Current Medications Acetaminophen (Tylenol 325mg Tab) 650 mg PO Q6H PRN PRN Reason: Pain, Mild (1-3) Betamethasone/Clotrimazole (Lotrisone) 0 gm TOP BID [facility] Last Admin: 06/07/17 17:14 Dose: 1 applic Piperacillin Sod/Tazobactam Sod (Zosyn 3.375 In Ns 100ml) 100 mls @ 200 mls/hr IVPB Q6 [facility] PRN Reason: Protocol Stop: 06/10/17 12:01 Last Admin: 06/10/17 05:31 Dose: 200 mls/hr Insulin Human Regular (Humulin R Med) 0 units SC ACHS [facility] PRN Reason: Protocol Last Admin: 06/09/17 18:28 Dose: Not Given Lisinopril (Zestril) 20 mg PO DAILY [facility] Last Admin: 06/08/17 11:11 Dose: 20 mg Metformin HCl (Glucophage) 1,000 mg PO BRKDIN [facility] Last Admin: 06/09/17 17:07 Dose: Not Given Oxychlorosene Sodium (Clorpactin Wcs-90) 2 gm TOP DAILY [facility] Last Admin: 06/07/17 09:30 Dose: Not Given Potassium Chloride (K-Dur 20 Meq Er Tab) 20 meq PO BID [facility] Last Admin: 06/09/17 18:28 Dose: 20 meq - Labs Labs: 06/09/17 06:41 06/09/17 06:41 PT 12.4 Seconds (9.9-11.8) H 06/02/17 21:19 INR 1.15 (0.93-1.08) H 06/02/17 21:19 APTT 27.3 Seconds (23.7-30.8) 06/02/17 21:19 - Constitutional Appears: Non-toxic, No Acute Distress - Head Exam Head Exam: NORMAL INSPECTION - ENT Exam ENT Exam: Mucous Membranes Moist - Neck Exam Neck Exam: absent: Meningismus - Respiratory Exam Respiratory Exam: Decreased Breath Sounds - Cardiovascular Exam Cardiovascular Exam: +S1, +S2 - GI/Abdominal Exam GI & Abdominal Exam: Soft. absent: Tenderness - Extremities Exam Additional comments: left foot with dressings in place Assessment and Plan - Assessment and Plan (Free Text) Plan: Assessment Consider left lower extremity skin and skin structure infection, with osteomyelitis, S/P debdridement, amputation of 4th toe, S/P I and D of abscess POD #6, growing Methicillin-sensitivie Staph aureus, Klebsiella, Enterobacter pre-diabetes obesity with BMI 30 Plan continue Zosyn; OR pathology showing gangrene and osteomyelitis - for once daily dosing, an option would be Daptomycin and Ertapenem once a day and add CPK levels to weekly labs may need 4-6 weeks of antibiotics with weekly ESR, CRP, CBC, CMP with outpatient follow up with Podiatry - however, just discussed with Dr. Lagunas today and she will discuss with Pathology since the bone margins were not commented on - if the margins are clear, then he may not need prolonged antibiotics
--- NOTE | 2017-06-10 13:19 | CP.PCM.PN ---
Subjective - Date & Time of Evaluation Date of Evaluation: 06/10/17 Time of Evaluation: 08:30 - Subjective Subjective: Podiatry Progress Note - Dr. Lagunas 61 year old male patient seen at bedside POD#7 left foot amputation of 4th digit , debridement of ulcer, and incision and drainage of abscess (DOS 06/03/17). Patient seen resting comfortably, AAOx3 and NAD. Patient denies any acute events overnight. Patient denies any pain to his left foot today. Patient states he has been working with physical therapy and has been NWB to left foot. Patient states he is only OOB to commode. Patient denies N/V/F/D/C/SOB/calf pain. No other pedal complaints at this time. Objective - Vital Signs/Intake and Output Vital Signs (last 24 hours): Temp Pulse Resp BP Pulse Ox 98.9 F 62 20 166/86 H 96 06/10/17 06:00 06/10/17 09:20 06/10/17 06:00 06/10/17 09:20 06/10/17 06:00 Intake and Output: 06/10/17 06/10/17 06:59 18:59 Intake Total 360 Output Total 300 Balance 60 - Medications Medications: Current Medications Acetaminophen (Tylenol 325mg Tab) 650 mg PO Q6H PRN PRN Reason: Pain, Mild (1-3) Betamethasone/Clotrimazole (Lotrisone) 0 gm TOP BID [facility] Last Admin: 06/07/17 17:14 Dose: 1 applic Insulin Human Regular (Humulin R Med) 0 units SC ACHS [facility] PRN Reason: Protocol Last Admin: 06/10/17 13:02 Dose: 1 units Lisinopril (Zestril) 20 mg PO DAILY [facility] Last Admin: 06/10/17 09:20 Dose: 20 mg Metformin HCl (Glucophage) 1,000 mg PO BRKDIN [facility] Last Admin: 06/10/17 08:20 Dose: 1,000 mg Oxychlorosene Sodium (Clorpactin Wcs-90) 2 gm TOP DAILY [facility] Last Admin: 06/10/17 10:00 Dose: Not Given Potassium Chloride (K-Dur 20 Meq Er Tab) 20 meq PO BID [facility] Last Admin: 06/10/17 09:21 Dose: 20 meq - Labs Labs: 06/10/17 06:10 06/10/17 06:09 PT 12.4 Seconds (9.9-11.8) H 06/02/17 21:19 INR 1.15 (0.93-1.08) H 06/02/17 21:19 APTT 27.3 Seconds (23.7-30.8) 06/02/17 21:19 - Constitutional Appears: Well, Non-toxic, No Acute Distress - Extremities Exam Additional comments: Dressing to left foot is clean, dry and intact No leak detected to wound vac, very minimal drainage Anterior left leg is noted to be deep, ruborous in color. Decreased edema +1 pitting edema noted to RLE - Neurological Exam Neurological Exam: Alert, Awake, Oriented x3 - Psychiatric Exam Psychiatric exam: Normal Affect, Normal Mood Assessment and Plan - Assessment and Plan (Free Text) Assessment: 61 year old male POD #7 amputation of left 4th digit, debridement of ulcer, incision and drainage of abscess Plan: Patient seen and evaluated with attending, Dr. Lagunas Chart, vitals, labs reviewed = afebrile, WBC wnl 6.8 WoundVAC left intact - will change tomorrow, 06/11 (Thursday// Thursday dressing changes) - Possible D/C home with VAC, pending - Continue elevation LLE Pathology report reviewed: gangrenous necrosis, abscess, and acute osteomyelitis. Description states due to fragmented nature of specimen, resection margin cannot be determined. - F/U pathology to assess proximal margin Per ID, continue Zosyn; patient may need 4-6 weeks of abx, pending clear margins Patient to be WBAT to left heel in surgical shoe with the assistance of walker - Surgical shoe ordered Podiatry will continue to follow while in house
[2017-06-11 06:26] LABS: BASO # 0.04 K/mm3 (0.0-2.0); BASO % 0.6 % (0.0-3.0); EOS # 0.3 (0.0-0.7); EOS % 4.8 % (1.5-5.0); GRAN # 4.63 (1.4-6.5); HEMATOCRIT 30.8 % (42.0-52.0); LYMPH # 1.3 (1.2-3.4); LYMPH % 18.8 % (22.0-35.0); MEAN CELL VOLUME 84.4 fl (80.0-105.0); MEAN CORPUSCULAR HEMOGLOBIN 27.9 pg (25.0-35.0); MEAN CORPUSCULAR HGB CONC 33.1 g/dl (31.0-37.0); MONO # 0.6 (0.1-0.6); MONO % 8.8 % (1.0-6.0); RED CELL DISTRIBUTION WIDTH 13.1 % (11.5-14.5); WHITE BLOOD COUNT 6.9 10^3/ul (4.5-11.0)
[2017-06-11 06:53] LABS: ALB/GLOB RATIO 0.8 (1.1-1.8); ALKALINE PHOSPHATASE 62 U/L (38-126); ALT/SGPT 34 U/L (7-56); AST/SGOT 19 U/L (17-59); BILIRUBIN,TOTAL 0.4 mg/dL (0.2-1.3); BLOOD UREA NITROGEN 8 mg/dL (7-21); CALCIUM 8.3 mg/dL (8.4-10.5); CARBON DIOXIDE 32 mmol/L (21-33); CHLORIDE 105 mmol/L (95-110); GFR AFRICAN-AMERICAN > 60; GLUCOSE,RANDOM 131 mg/dL (70-110); POTASSIUM 3.8 mmol/L (3.6-5.0); SODIUM 144 mmol/L (132-148); TOTAL PROTEIN 6.2 g/dL (5.8-8.3)
[2017-06-11] MEDS: Insulin Reg-MEDIUM-Coverage SC SCH ×4 (09:51→22:50)
[2017-06-11] MEDS: Potassium Chloride 20 mEq ER Tab PO SCH ×2 (10:55→17:45)
[2017-06-11] MEDS: Clotrimazole/Betamethasone Cream(15 gm) TOP SCH ×2 (10:55→17:45)
--- NOTE | 2017-06-11 11:07 | CP.PCM.PN ---
Subjective - Date & Time of Evaluation Date of Evaluation: 06/11/17 Time of Evaluation: 11:01 - Subjective Subjective: Podiatry Progress Note - Dr. Lagunas 61 year old male patient seen at bedside POD#8 left foot amputation of 4th digit , debridement of ulcer, and incision and drainage of abscess (DOS 06/03/17). Patient seen resting comfortably, AAOx3 and NAD. Patient denies any acute events overnight. Patient denies any pain to his left foot today; states he is feeling better. States he has been ambulating comfortably, WBAT in surgical shoe with the assistance of walker; however, ambulation is minimal. Patient denies N/V/F/D/C/SOB/calf pain. No other pedal complaints at this time. Objective - Vital Signs/Intake and Output Vital Signs (last 24 hours): Temp Pulse Resp BP Pulse Ox 98.5 F 65 20 160/80 H 96 06/11/17 08:57 06/11/17 08:57 06/11/17 08:57 06/11/17 08:57 06/11/17 08:57 Intake and Output: 06/11/17 06/11/17 06:59 18:59 Intake Total 420 240 Output Total 500 500 Balance -80 -260 - Medications Medications: Current Medications Acetaminophen (Tylenol 325mg Tab) 650 mg PO Q6H PRN PRN Reason: Pain, Mild (1-3) Betamethasone/Clotrimazole (Lotrisone) 0 gm TOP BID [facility] Last Admin: 06/10/17 18:04 Dose: 1 applic Piperacillin Sod/Tazobactam Sod (Zosyn 3.375 In Ns 100ml) 100 mls @ 200 mls/hr IVPB Q6 [facility] PRN Reason: Protocol Stop: 06/17/17 12:01 Insulin Human Regular (Humulin R Med) 0 units SC ACHS [facility] PRN Reason: Protocol Last Admin: 06/10/17 22:27 Dose: Not Given Lisinopril (Zestril) 40 mg PO DAILY [facility] Metformin HCl (Glucophage) 1,000 mg PO BRKDIN [facility] Last Admin: 06/11/17 08:41 Dose: 1,000 mg Oxychlorosene Sodium (Clorpactin Wcs-90) 2 gm TOP DAILY [facility] Last Admin: 09/27/17 10:00 Dose: Not Given Potassium Chloride (K-Dur 20 Meq Er Tab) 20 meq PO BID [facility] Last Admin: 06/10/17 17:58 Dose: 20 meq - Labs Labs: 06/11/17 06:00 06/11/17 06:00 PT 12.4 Seconds (9.9-11.8) H 06/02/17 21:19 INR 1.15 (0.93-1.08) H 06/02/17 21:19 APTT 27.3 Seconds (23.7-30.8) 06/02/17 21:19 - Constitutional Appears: Well, Non-toxic, No Acute Distress - Extremities Exam Additional comments: Dressing to left foot is clean, dry and intact No leak detected to wound vac, very minimal drainage VASC: DP and PT pulses palpable 2/4 b/l. CFT wnl. TG warm to warm b/l. +1 pitting edema noted BLE, R>L however edema to LLE decreased. NEURO: Gross sensation absent. DERM: Open wound at 4th digit amputation site is noted to have granular tissue with no drainage noted upon removal of VAC; increase in granulation of amputation site. 4th metatarsal head exposed, noted to have no articular cartilage remaining. Amputation site tunnels proximomedially toward plantar medial arch open wound - exposed plantar fascia noted at open wound site. Moderate maceration noted around entire 5th digit and around plantar medial arch wound. No purulence noted. Anterior LLE noted to be deep, ruborous in color. ORTHO: No pain on palpation left foot. - Neurological Exam Neurological Exam: Alert, Awake, Oriented x3 - Psychiatric Exam Psychiatric exam: Normal Affect, Normal Mood Assessment and Plan - Assessment and Plan (Free Text) Assessment: 61 year old male POD #8 amputation of left 4th digit, debridement of ulcer, incision and drainage of abscess Plan: Patient seen and evaluated with attending, Dr. Lagunas Chart, vitals, labs reviewed = afebrile Discontinue use of WoundVAC due to moderate maceration at surgical sites and 5th digit 1/2" iodoform packing placed into tunneling from 4th digit amputation site and plantar medial arch wound. Xeroform applied to amputation site, on dorsal aspect of 5th digit, and in plantar wound, and dressed with DSD Continue elevation LLE Pathology report: gangrenous necrosis, abscess, and acute osteomyelitis. Description states due to fragmented nature of specimen, resection margin cannot be determined. - Follow up with pathology for proximal margin results; will determine if patient needs manager long term care abx. If clear pt may not need prolonged abx Per ID, continue Zosyn; consider Daptomycin and Ertapenem for QD dosing Continue WBAT to left heel in surgical shoe with the assistance of walker Stable to be discharged from podiatry standpoint Patient is to follow up in wound care clinic next week Thursday, 06/[address] Ng for outpatient care Visiting nursing to change left lower extremity dressing daily until wound care appointment. At that time, will reassess Podiatry will continue to follow while in house VISITING NURSE DAILY DRESSING CHANGE ORDERS: Cleanse left foot with sterile saline Gently pack 1/2" iodoform packing strip from 4th digit amputation site through plantar open wound. With each subsequent dressing change, use less packing strip Apply Xeroform over amputation site, dorsal 5th digit, and plantar wound Place 4x4 gauze over 4th and 5th digits, plantar wound 2 ABD pads over gauze, wrap in kerlix and loose TYLER
[2017-06-11] MEDS: Piperacillin/Tazobact 3.375 gm 100 ML IVPB SCH ×2 (11:53→17:46)
[2017-06-11] MEDS: Oxychlorosene Topical 2 gm Packet TOP SCH (11:55)
--- NOTE | 2017-06-11 12:50 | PN ---
SUBJECTIVE: The patient was seen and examined at bedside on the general medical [facility]. No acute events overnight. He remains afebrile and hemodynamically stable. The patient is status post PICC line placement to the [facility] to facilitate long-term antibiotics and presently pending clearance for discharge from the podiatric team. OBJECTIVE: VITAL SIGNS: Temperature 98.5, pulse 65, blood pressure 160/80, respiratory rate 20, and oxygen saturation 96% on room air. GENERAL: No apparent distress. HEENT: PERRL. EOMI. No scleral icterus. No conjunctival pallor. NECK: No JVD. No bruits. LUNGS: Clear to auscultation. CARDIOVASCULAR: Regular rate and rhythm. Normal S1 and S2. ABDOMEN: Normoactive bowel sounds, soft, nontender, nondistended. EXTREMITIES: Left lower extremity with mild edema and erythema with surgical dressing and wound VAC in place. NEUROLOGIC: Awake, alert, and oriented x3. No focal motor deficits. LABORATORY DATA: CBC reviewed and unremarkable. CMP reviewed and largely unremarkable. 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 PLAN: 1. LLE cellulitis, resolving. Input from Dr. Kasper noted and appreciated. Continue with current antimicrobial as per Dr. Kasper. 2. Gangrene of the left fourth and fifth digits with osteomyelitis s/p amputation of the fourth digit POD #8. Input from Dr. Lagunas and the podiatric team noted and appreciated. The patient will likely require 4 to 6 weeks of antibiotics. A PICC line has been placed to facilitate this, and per Dr. Kasper's note daptomycin appears to be the recommended antibiotic. 3. Type 2 diabetes mellitus, newly diagnosed, uncontrolled with an A1c of 13. Continue with ISS and Metformin 1000 mg p.o. b.i.d. 4. Hypertension. Blood pressure noted to be elevated. We will increase Lisinopril to Lisinopril 40 mg p.o. daily. 5. Prophylaxis. GI prophylaxis not indicated, as the patient is eating. Continue with Venodyne for DVT prophylaxis. CODE STATUS: Full code. Emerson Kenney MD MTDElliot
--- NOTE | 2017-06-11 13:52 | CP.PCM.PN ---
Subjective - Date & Time of Evaluation Date of Evaluation: 06/11/17 Time of Evaluation: 10:50 - Subjective Subjective: Comfortable, not in distress. Objective - Vital Signs/Intake and Output Vital Signs (last 24 hours): Temp Pulse Resp BP Pulse Ox 98.5 F 63 20 159/69 H 92 L 06/10/17 17:00 06/10/17 17:00 06/10/17 17:00 06/10/17 17:00 06/10/17 17:00 Intake and Output: 06/11/17 06/11/17 06:59 18:59 Intake Total 420 240 Output Total 500 500 Balance -80 -260 - Medications Medications: Current Medications Acetaminophen (Tylenol 325mg Tab) 650 mg PO Q6H PRN PRN Reason: Pain, Mild (1-3) Betamethasone/Clotrimazole (Lotrisone) 0 gm TOP BID [facility] Last Admin: 06/10/17 18:04 Dose: 1 applic Insulin Human Regular (Humulin R Med) 0 units SC ACHS [facility] PRN Reason: Protocol Last Admin: 06/10/17 22:27 Dose: Not Given Lisinopril (Zestril) 20 mg PO DAILY [facility] Last Admin: 06/10/17 09:20 Dose: 20 mg Metformin HCl (Glucophage) 1,000 mg PO BRKDIN [facility] Last Admin: 06/10/17 17:58 Dose: 1,000 mg Oxychlorosene Sodium (Clorpactin Wcs-90) 2 gm TOP DAILY [facility] Last Admin: 06/10/17 10:00 Dose: Not Given Potassium Chloride (K-Dur 20 Meq Er Tab) 20 meq PO BID [facility] Last Admin: 06/10/17 17:58 Dose: 20 meq - Labs Labs: 06/11/17 06:00 06/11/17 06:00 PT 12.4 Seconds (9.9-11.8) H 06/02/17 21:19 INR 1.15 (0.93-1.08) H 06/02/17 21:19 APTT 27.3 Seconds (23.7-30.8) 06/02/17 21:19 - Constitutional Appears: Non-toxic, No Acute Distress - Head Exam Head Exam: NORMAL INSPECTION - Neck Exam Neck Exam: absent: Meningismus - Respiratory Exam Respiratory Exam: Decreased Breath Sounds - Cardiovascular Exam Cardiovascular Exam: +S1, +S2 - GI/Abdominal Exam GI & Abdominal Exam: Soft. absent: Tenderness - Extremities Exam Additional comments: left foot with dressings in place Assessment and Plan - Assessment and Plan (Free Text) Plan: Assessment Consider left lower extremity skin and skin structure infection, with osteomyelitis, S/P debdridement, amputation of 4th toe, S/P I and D of abscess POD #7, growing Methicillin-sensitivie Staph aureus, Klebsiella, Enterobacter pre-diabetes obesity with BMI 30 Plan on Zosyn; OR pathology showing gangrene and osteomyelitis - for once daily dosing, an option would be Daptomycin and Ertapenem once a day and add CPK levels to weekly labs may need 4-6 weeks of antibiotics with weekly ESR, CRP, CBC, CMP with outpatient follow up with Podiatry - however, just discussed with Dr. Lagunas and she will discuss with Pathology since the bone margins were not commented on - if the margins are clear, then he may not need prolonged antibiotics (only 2 weeks of antibiotics)
[2017-06-11 17:37] VITALS: O2SAT 95
[2017-06-12] MEDS: Piperacillin/Tazobact 3.375 gm 100 ML IVPB SCH ×2 (01:22→06:33)
[2017-06-12 07:59] VITALS: BP 165/90; PULSE 70; RESP 20; TEMP 98
[2017-06-12] MEDS: Insulin Reg-MEDIUM-Coverage SC SCH ×2 (08:24→11:52)
[2017-06-12 08:48] LABS: BASO # 0.04 K/mm3 (0.0-2.0); BASO % 0.6 % (0.0-3.0); EOS # 0.4 (0.0-0.7); EOS % 5.5 % (1.5-5.0); GRAN # 4.77 (1.4-6.5); HEMATOCRIT 31.7 % (42.0-52.0); LYMPH # 1.1 (1.2-3.4); LYMPH % 16.2 % (22.0-35.0); MEAN CELL VOLUME 84.5 fl (80.0-105.0); MEAN CORPUSCULAR HEMOGLOBIN 27.5 pg (25.0-35.0); MEAN CORPUSCULAR HGB CONC 32.5 g/dl (31.0-37.0); MEAN PLATELET VOLUME 9.2 fl (7.0-11.0); MONO # 0.6 (0.1-0.6); MONO % 8.7 % (1.0-6.0); WHITE BLOOD COUNT 6.9 10^3/ul (4.5-11.0)
--- NOTE | 2017-06-12 09:41 | PN ---
SUBJECTIVE: The patient was seen and examined at bedside on the general medical [facility]. No acute events overnight. He remains afebrile and hemodynamically stable. The patient has been cleared for discharge by the podiatric team and arrangements have been made for home infusions for continued IV antibiotics. This morning he feels great and is eager for discharge to home. OBJECTIVE VITAL SIGNS: Temperature 98, pulse 70, blood pressure 165/90, respiratory rate 20, and oxygen saturation 95% on room air. GENERAL: No apparent distress. HEENT: PERRL. EOMI. No scleral icterus. No conjunctival pallor. NECK: No JVD. No bruits. LUNGS: Clear to auscultation. CARDIOVASCULAR: Regular rate and rhythm. Normal S1 and S2. ABDOMEN: Normoactive bowel sounds, soft, nontender, nondistended. EXTREMITIES: LLE with mild edema and erythema (improving) and with surgical dressing in place. NEUROLOGIC: Awake, alert, and oriented x3. No focal motor deficits. LABORATORY DATA: CBC reviewed and largely unremarkable. CMP pending. 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 PLAN: 1. LLE cellulitis, resolving. Input from Dr. Kasper noted and greatly appreciated. Continue with current antimicrobial as per Dr. Kasper. 2. Gangrene of the left fourth and fifth digits with osteomyelitis, s/p amputation of the fourth digit POD #9. Input from Dr. Lagunas and the podiatric team greatly appreciated. Input from Dr. Kasper also noted and greatly appreciated and arrangements have been made for home IV antibiotic infusions. 3. Type 2 diabetes mellitus, newly diagnosed, uncontrolled with an A1c of 13. Continue with ISS and Metformin 1000 mg p.o. b.i.d. The patient has been extensively counseled on lifestyle modifications. 4. Hypertension, continue with lisinopril 40 mg p.o. daily. 5. Prophylaxis, GI prophylaxis not indicated, as the patient is eating. Continue with Venodyne for DVT prophylaxis. 6. Disposition, the patient will be discharged to home today. CODE STATUS: Full code. Emerson Kenney MD MTDD
[2017-06-12] MEDS: Clotrimazole/Betamethasone Cream(15 gm) TOP SCH (10:03)
[2017-06-12] MEDS: Potassium Chloride 20 mEq ER Tab PO SCH (10:03)
[2017-06-12 10:31] LABS: ALB/GLOB RATIO 0.9 (1.1-1.8); ALKALINE PHOSPHATASE 64 U/L (38-126); ALT/SGPT 32 U/L (7-56); AST/SGOT 26 U/L (17-59); BILIRUBIN,TOTAL 0.5 mg/dL (0.2-1.3); BLOOD UREA NITROGEN 8 mg/dL (7-21); CALCIUM 8.4 mg/dL (8.4-10.5); CARBON DIOXIDE 29 mmol/L (21-33); CHLORIDE 105 mmol/L (98-107); GFR AFRICAN-AMERICAN > 60; GLUCOSE,RANDOM 132 mg/dL (70-110); POTASSIUM 3.5 mmol/L (3.6-5.0); SODIUM 143 mmol/L (132-148); TOTAL PROTEIN 6.4 g/dL (5.8-8.3)
--- NOTE | 2017-06-12 10:41 | CP.PCM.PN ---
Subjective - Date & Time of Evaluation Date of Evaluation: 06/12/17 Time of Evaluation: 09:40 - Subjective Subjective: Comfortable, no fevers, not in distress. Objective - Vital Signs/Intake and Output Vital Signs (last 24 hours): Temp Pulse Resp BP Pulse Ox 98.9 F 62 18 169/88 H 95 06/11/17 17:37 06/11/17 17:37 06/11/17 17:37 06/11/17 17:37 06/11/17 17:37 Intake and Output: 06/11/17 06/12/17 18:59 06:59 Intake Total 240 540 Output Total 500 200 Balance -260 340 - Medications Medications: Current Medications Acetaminophen (Tylenol 325mg Tab) 650 mg PO Q6H PRN PRN Reason: Pain, Mild (1-3) Betamethasone/Clotrimazole (Lotrisone) 0 gm TOP BID [facility] Last Admin: 06/11/17 17:45 Dose: 1 applic Piperacillin Sod/Tazobactam Sod (Zosyn 3.375 In Ns 100ml) 100 mls @ 200 mls/hr IVPB Q6 [facility] PRN Reason: Protocol Stop: 06/17/17 12:01 Last Admin: 06/12/17 06:33 Dose: 200 mls/hr Daptomycin 570 mg/ Sodium (Chloride) 100 mls @ 200 mls/hr IV ONCE ONE PRN Reason: Protocol Stop: 06/12/17 10:29 Ertapenem 1 gm/ Sodium (Chloride) 50 mls @ 100 mls/hr IVPB ONCE ONE Stop: 06/12/17 10:29 Insulin Human Regular (Humulin R Med) 0 units SC ACHS [facility] PRN Reason: Protocol Last Admin: 06/11/17 22:50 Dose: Not Given Lisinopril (Zestril) 40 mg PO DAILY [facility] Last Admin: 06/11/17 10:55 Dose: 40 mg Metformin HCl (Glucophage) 1,000 mg PO BRKDIN [facility] Last Admin: 06/11/17 17:45 Dose: 1,000 mg Oxychlorosene Sodium (Clorpactin Wcs-90) 2 gm TOP DAILY [facility] Last Admin: 06/11/17 11:55 Dose: 2 gm Potassium Chloride (K-Dur 20 Meq Er Tab) 20 meq PO BID [facility] Last Admin: 06/11/17 17:45 Dose: 20 meq - Labs Labs: 06/11/17 06:00 06/11/17 06:00 PT 12.4 Seconds (9.9-11.8) H 06/02/17 21:19 INR 1.15 (0.93-1.08) H 06/02/17 21:19 APTT 27.3 Seconds (23.7-30.8) 06/02/17 21:19 - Constitutional Appears: Non-toxic, No Acute Distress - Head Exam Head Exam: NORMAL INSPECTION - ENT Exam ENT Exam: Mucous Membranes Moist - Neck Exam Neck Exam: absent: Lymphadenopathy, Meningismus - Respiratory Exam Respiratory Exam: Decreased Breath Sounds - Cardiovascular Exam Cardiovascular Exam: +S1, +S2 - GI/Abdominal Exam GI & Abdominal Exam: Soft. absent: Tenderness - Extremities Exam Additional comments: left foot with dressings in place Assessment and Plan - Assessment and Plan (Free Text) Plan: Assessment Consider left lower extremity skin and skin structure infection, with osteomyelitis, S/P debdridement, amputation of 4th toe, S/P I and D of abscess POD #8, growing Methicillin-sensitivie Staph aureus, Klebsiella, Enterobacter pre-diabetes obesity with BMI 30 Plan on Zosyn; OR pathology showing gangrene and osteomyelitis - for once daily dosing, he can be switched to Daptomycin and Ertapenem once a day and add CPK levels to weekly labs may need 4-6 weeks of antibiotics with weekly ESR, CRP, CBC, CMP with outpatient follow up with Podiatry - however, discussed with Dr. Lagunas and she will discuss with Pathology since the bone margins were not commented on - if the margins are clear, then he may not need prolonged antibiotics (only 2 weeks of antibiotics) - Dr. Lagunas to follow this up as outpatient
--- NOTE | 2017-06-12 15:04 | CP.PCM.PN ---
<Chuck Regalado - Last Filed: 06/12/17 14:58> Subjective - Date & Time of Evaluation Date of Evaluation: 06/12/17 Time of Evaluation: 14:58 - Subjective Subjective: Podiatry Progress Note - Dr. Ng 61 year old male patient seen at bedside POD#9 left foot amputation of 4th digit , debridement of ulcer, and incision and drainage of abscess (DOS 06/03/17). Patient seen resting comfortably, AAOx3 and NAD. Patient denies any pain to left foot. Patient states he is continuing to elevate LLE. Patient ambulating comfortably in wedge shoe to left foot with the assistance of walker. Patient aware he will be discharged today, and is aware that he is to follow up in the wound care clinic next week Thursday, 06/15 for local wound care. Patient denies N/ V/F/D/C/SOB/calf pain. No other pedal complaints at this time. Objective - Vital Signs/Intake and Output Vital Signs (last 24 hours): Temp Pulse Resp BP Pulse Ox 98.0 F 70 20 165/90 H 95 06/12/17 06:00 06/12/17 10:03 06/12/17 06:00 06/12/17 10:03 06/12/17 06:00 Intake and Output: 06/12/17 06/12/17 06:59 18:59 Intake Total 540 360 Output Total 200 400 Balance 340 -40 - Medications Medications: Current Medications Acetaminophen (Tylenol 325mg Tab) 650 mg PO Q6H PRN PRN Reason: Pain, Mild (1-3) Betamethasone/Clotrimazole (Lotrisone) 0 gm TOP BID [facility] Last Admin: 06/12/17 10:03 Dose: 1 applic Insulin Human Regular (Humulin R Med) 0 units SC ACHS [facility] PRN Reason: Protocol Last Admin: 06/12/17 11:52 Dose: Not Given Lisinopril (Zestril) 40 mg PO DAILY [facility] Last Admin: 06/12/17 10:03 Dose: 40 mg Metformin HCl (Glucophage) 1,000 mg PO BRKDIN [facility] Last Admin: 06/12/17 10:02 Dose: 1,000 mg Oxychlorosene Sodium (Clorpactin Wcs-90) 2 gm TOP DAILY [facility] Last Admin: 06/11/17 11:55 Dose: 2 gm Potassium Chloride (K-Dur 20 Meq Er Tab) 20 meq PO BID [facility] Last Admin: 06/12/17 10:03 Dose: 20 meq - Labs Labs: 06/12/17 08:30 06/12/17 08:30 PT 12.4 Seconds (9.9-11.8) H 06/02/17 21:19 INR 1.15 (0.93-1.08) H 06/02/17 21:19 APTT 27.3 Seconds (23.7-30.8) 06/02/17 21:19 - Constitutional Appears: Well, Non-toxic, No Acute Distress - Extremities Exam Additional comments: Dressing to left foot is clean, dry and intact with no strikethrough noted VASC: DP and PT pulses palpable 2/4 b/l. CFT wnl. TG warm to warm b/l. +1 pitting edema noted BLE, R>L however edema to LLE decreased. NEURO: Gross sensation absent. DERM: Open wound at 4th digit amputation site is noted to have granular tissue with mild serosanguinous drainage noted; increased granulation at amputation site. 4th metatarsal head exposed, noted to have no articular cartilage remaining. Amputation site tunnels proximomedially toward plantar medial arch open wound - exposed plantar fascia noted at open wound site. Maceration noted around entire 5th digit and around plantar medial arch wound has decreased. No purulence noted. Anterior LLE noted to be deep, ruborous in color - decreasing. ORTHO: No pain on palpation left foot. - Neurological Exam Neurological Exam: Alert, Awake, Oriented x3 - Psychiatric Exam Psychiatric exam: Normal Affect, Normal Mood Assessment and Plan - Assessment and Plan (Free Text) Assessment: 61 year old male POD #9 amputation of left 4th digit, debridement of ulcer, incision and drainage of abscess Plan: Patient seen and evaluated Discussed with attending, Dr. Ng Wound cleansed with sterile saline; 1/2" iodoform packing partially pulled from tunneling, Xeroform applied to amputation site, on dorsal aspect of 5th digit, and plantar wound. Left foot dressed with DSD C/w elevation LLE Pathology report: gangrenous necrosis, abscess, and acute osteomyelitis. Description states due to fragmented nature of specimen, resection margin cannot be determined. - Discussed with pathology re: resection margin = proximal margin reveals reparative changes and no evidence of acute osteomyelitis - Will need 2 weeks abx Per ID, continue Zosyn; consider Daptomycin and Ertapenem for QD dosing Continue WBAT to left heel in surgical shoe with the assistance of walker Stable to be discharged from podiatry standpoint Patient is to follow up in wound care clinic next week Thursday, 06/[address] Ng for outpatient care Visiting nursing to change left lower extremity dressing daily until wound care appointment. At that time, will reassess Podiatry will continue to follow while in house VISITING NURSE DAILY DRESSING CHANGE ORDERS: Cleanse left foot with sterile saline Gently pack 1/2" iodoform packing strip from 4th digit amputation site through plantar open wound. With each subsequent dressing change, use less packing strip Apply Xeroform over amputation site, dorsal 5th digit, and plantar wound Place 4x4 gauze over 4th and 5th digits, plantar wound 2 ABD pads over gauze, wrap in kerlix and loose TYLER <Onur Ng - Last Filed: 06/12/17 18:50> Objective - Vital Signs/Intake and Output Vital Signs (last 24 hours): Temp Pulse Resp BP Pulse Ox 98.0 F 70 20 165/90 H 95 06/12/17 06:00 06/12/17 10:03 06/12/17 06:00 06/12/17 10:03 06/12/17 06:00 Intake and Output: 06/12/17 06/12/17 06:59 18:59 Intake Total 540 360 Output Total 200 400 Balance 340 -40 - Labs Labs: 06/12/17 08:30 06/12/17 08:30 PT 12.4 Seconds (9.9-11.8) H 06/02/17 21:19 INR 1.15 (0.93-1.08) H 06/02/17 21:19 APTT 27.3 Seconds (23.7-30.8) 06/02/17 21:19 Attending/Attestation - Attestation I have personally seen and examined this patient.: Yes I have fully participated in the care of the patient.: Yes I have reviewed all pertinent clinical information, including history, physical exam and plan: Yes
== END 2017-06-12 15:44 | disposition home or self-care (01) | DRG 617 ==
LOC: ED 19:38 → ERH 22:34 → 3RSO 06-03 00:59
PROVIDERS: ADMIT Student in an Organized Health Care Education/Training Program; ATTEND Student in an Organized Health Care Education/Training Program
PROC: 0JBR0ZZ Excision of Left Foot Subcutaneous Tissue and Fascia, Open Approach (ICD-10-PCS; 2017-06-03)
PROC: 0Y6W0Z0 Detachment at Left 4th Toe, Complete, Open Approach (ICD-10-PCS; principal; 2017-06-03 16:00)
PROC: 0HBNXZZ Excision of Left Foot Skin, External Approach (ICD-10-PCS; 2017-06-03 16:00)
PROC: 02HV33Z Insertion of Infusion Device into Superior Vena Cava, Percutaneous Approach (ICD-10-PCS; 2017-06-10)
DX: E11.69 Type 2 diabetes mellitus with other specified complication (principal); M86.172 Other acute osteomyelitis, left ankle and foot; E11.52 Type 2 diabetes mellitus with diabetic peripheral angiopathy with gangrene; L03.116 Cellulitis of left lower limb; E11.65 Type 2 diabetes mellitus with hyperglycemia; L02.612 Cutaneous abscess of left foot; E11.621 Type 2 diabetes mellitus with foot ulcer; E66.9 Obesity, unspecified; Z68.30 Body mass index [BMI] 30.0-30.9, adult; L97.529 Non-pressure chronic ulcer of other part of left foot with unspecified severity; B95.61 Methicillin susceptible Staphylococcus aureus infection as the cause of diseases classified elsewhere; B96.1 Klebsiella pneumoniae [K. pneumoniae] as the cause of diseases classified elsewhere; I10 Essential (primary) hypertension